=== PATIENT | male | born 1955 | race Caucasian/White ===

== ENCOUNTER → 2020-09-21 10:42 | Outpatient (BNVA) | payer MEDICARE, SELFPAY | PROVIDERS: Visit Provider Anesthesiology Pain Medicine | DX: M54.42 Lumbago with sciatica, left side (principal); M43.10 Spondylolisthesis, site unspecified; M51.36 Other intervertebral disc degeneration, lumbar region; M54.9 Dorsalgia, unspecified; M47.816 Spondylosis without myelopathy or radiculopathy, lumbar region; Z79.891 Long term (current) use of opiate analgesic | CPT/HCPCS: 99205 ==

== ENCOUNTER → 2020-10-19 10:49 | Outpatient (BNVA) | payer MEDICARE, SELFPAY | PROVIDERS: PCP Family Medicine; Visit Provider Anesthesiology Pain Medicine | DX: M54.42 Lumbago with sciatica, left side (principal); M51.36 Other intervertebral disc degeneration, lumbar region; M47.816 Spondylosis without myelopathy or radiculopathy, lumbar region; M19.019 Primary osteoarthritis, unspecified shoulder; M54.9 Dorsalgia, unspecified; Z79.891 Long term (current) use of opiate analgesic | CPT/HCPCS: 99214 ==

== ENCOUNTER 2020-10-26 10:49 | Outpatient (CLI) | payer MEDICARE, SELFPAY ==
--- NOTE | 2020-10-26 10:56 | XR_ITS ---
WS: [id number] LUMBAR SPINE: 5 VIEWS TECHNIQUE: AP, obliques, lateral and L5-S1 spot. HISTORY: M47.816 - Spondylosis without myelopathy or radiculopathy... COMPARISON: None available. L5 anterolisthesis by 9.6 mm. The remaining vertebral bodies are normally aligned. No fractures. L5 p ars defects are noted. Very minimal narrowing of the disc spaces. L5-S1 foramina are at least moderately narrowed. SI joints are symmetric bilaterally. No soft tissue abnormalities. Prior LEFT hip arthroplasty. XR/XR lumbar spine min 4V [id number] IMPRESSION: 1. Grade 1 spondylolisthesis with spondylolysis at L5. 2. Moderate narrowing of the L5-S1 foramina.
--- NOTE | 2020-10-26 10:56 | XR_ITS ---
WS: [id number] RIGHT SHOULDER: 3 VIEW(S) TECHNIQUE: Internal and external rotation with Y view. 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 No fracture or dislocation or soft tissue abnormality. Mild AC joint arthritis with narrowing. Mild irregularity along the glenoid surface. Visualized RIGHT lung is clear. XR/XR shoulder RT min 2V* [id number] IMPRESSION: Mild AC joint and glenohumeral joint arthritis.
== END 2020-10-26 10:50 | disposition home or self-care (01) ==
PROVIDERS: PCP Family Medicine; Visit Provider Anesthesiology Pain Medicine
DX: M47.816 Spondylosis without myelopathy or radiculopathy, lumbar region (principal); M13.811 Other specified arthritis, right shoulder; M43.16 Spondylolisthesis, lumbar region
CPT/HCPCS: 72110; 73030

== ENCOUNTER → 2020-10-28 09:12 | Outpatient (BNVA) | payer MEDICARE, SELFPAY | PROVIDERS: PCP Family Medicine; Visit Provider Family Medicine | DX: I10 Essential (primary) hypertension (principal); E11.9 Type 2 diabetes mellitus without complications; E03.8 Other specified hypothyroidism; Z12.5 Encounter for screening for malignant neoplasm of prostate; D35.2 Benign neoplasm of pituitary gland; Z96.642 Presence of left artificial hip joint; Z68.23 Body mass index [BMI] 23.0-23.9, adult | CPT/HCPCS: 80053; 80061; 82043; 83036; 84443; 85025; G0103 ==

== ENCOUNTER → 2020-11-16 09:49 | Outpatient (BNVA) | payer MEDICARE, SELFPAY | PROVIDERS: PCP Family Medicine; Visit Provider Anesthesiology Pain Medicine | DX: M54.42 Lumbago with sciatica, left side (principal); M51.36 Other intervertebral disc degeneration, lumbar region; M43.10 Spondylolisthesis, site unspecified; M47.816 Spondylosis without myelopathy or radiculopathy, lumbar region; M54.9 Dorsalgia, unspecified; M19.019 Primary osteoarthritis, unspecified shoulder; Z79.891 Long term (current) use of opiate analgesic; Z87.891 Personal history of nicotine dependence | CPT/HCPCS: 99214 ==

== ENCOUNTER → 2020-12-14 09:07 | Outpatient (BNVA) | payer MEDICARE, SELFPAY | PROVIDERS: PCP Family Medicine; Visit Provider Anesthesiology Pain Medicine | DX: M54.42 Lumbago with sciatica, left side (principal); M47.816 Spondylosis without myelopathy or radiculopathy, lumbar region; M51.36 Other intervertebral disc degeneration, lumbar region; M43.10 Spondylolisthesis, site unspecified; M19.011 Primary osteoarthritis, right shoulder; Z79.891 Long term (current) use of opiate analgesic | CPT/HCPCS: 99213; 99214 ==

== ENCOUNTER → 2021-01-10 10:46 | Outpatient (BNVA) | payer MEDICARE, SELFPAY | PROVIDERS: PCP Family Medicine; Visit Provider Anesthesiology Pain Medicine | DX: M51.36 Other intervertebral disc degeneration, lumbar region (principal); M47.816 Spondylosis without myelopathy or radiculopathy, lumbar region; M19.011 Primary osteoarthritis, right shoulder; M43.16 Spondylolisthesis, lumbar region; M48.07 Spinal stenosis, lumbosacral region; Z79.891 Long term (current) use of opiate analgesic | CPT/HCPCS: 99214 ==

== ENCOUNTER 2021-02-08 08:29 | Outpatient (CLI) | payer MEDICARE, SELFPAY ==
[2021-02-08 09:03] LABS: Basophils % 0.6 %; Eosinophils # 0.2 10^3/uL (0.0-0.8); Eosinophils % 3.6 %; Hematocrit 43.3 % (42.0-52.0); Hemoglobin 14.3 g/dL (11.7-16.6); Lymphocytes # 1.1 10^3/uL (0.8-4.8); Lymphocytes % 23.7 %; Mean Corpuscular Hemoglobin 29.1 pg (28.0-34.0); Monocytes # 0.3 10^3/uL (0.2-0.9); Monocytes % 6.6 %; Neutrophils # 3.08 10^3/uL (1.8-7.7); Neutrophils % 65.3 %; Nucleated Red Blood Cells % 0 %; Platelet Count 186 10^3/cmm (130-400); Red Blood Count 4.92 10^6/uL (4.1-5.3); Red Cell Distribution Width 12.7 % (12.1-15.1); White Blood Count 4.7 10^3/uL (4.0-10.0)
[2021-02-08 09:51] LABS: Free T4 Free Thyroxine 1.56 ng/dL (0.82-1.77); Prostate Specific Antigen 0.206 ng/mL (0-4)
[2021-02-08 10:02] LABS: Anion Gap 14.2 (5-19); Blood Urea Nitrogen 14 mg/dL (8-23); Calcium 8.8 mg/dL (8.5-10.5); Carbon Dioxide 28 mmol/L (22-29); Chloride 96 mmol/L (98-107); Glomerular Filtration Rate 113.9 mL/min (90-130); Glucose 167 mg/dL (65-115); Osmolality Calculated 282 mOsm/kg (285-295); Potassium 4.2 mmol/L (3.5-5.1); Sodium 134 mmol/L (136-145)
[2021-02-12 14:12] LABS: Plasma Renin Activity LC/MS/MS 2.55 ng/mL/h (0.25-5.82)
[2021-02-13 14:17] LABS: IGF1 LC/MS 73 ng/mL (41-279)
== END 2021-02-08 08:30 | disposition home or self-care (01) ==
LOC: LAB 08:39
PROVIDERS: PCP Family Medicine; Visit Provider Internal Medicine
DX: E11.9 Type 2 diabetes mellitus without complications (principal); E78.5 Hyperlipidemia, unspecified; E23.6 Other disorders of pituitary gland
CPT/HCPCS: 36415; 80048; 84153; 84244; 84305; 84439; 85025

== ENCOUNTER → 2021-04-05 09:48 | Outpatient (BNVA) | payer MEDICARE, SELFPAY | PROVIDERS: PCP Family Medicine; Visit Provider Internal Medicine | DX: E11.9 Type 2 diabetes mellitus without complications (principal); E23.6 Other disorders of pituitary gland; E03.8 Other specified hypothyroidism; E78.5 Hyperlipidemia, unspecified; I10 Essential (primary) hypertension; Z87.891 Personal history of nicotine dependence; Z79.84 Long term (current) use of oral hypoglycemic drugs | CPT/HCPCS: 99214 ==

== ENCOUNTER 2021-04-06 12:24 | Outpatient (CLI) | payer MEDICARE, SELFPAY ==
[2021-04-06 13:28] LABS: Anion Gap 14.9 (5-19); Blood Urea Nitrogen 16 mg/dL (8-23); Calcium 9.3 mg/dL (8.5-10.5); Carbon Dioxide 26 mmol/L (22-29); Chloride 99 mmol/L (98-107); Glomerular Filtration Rate 113.9 mL/min (90-130); Glucose 179 mg/dL (65-115); Osmolality Calculated 286 mOsm/kg (285-295); Potassium 4.9 mmol/L (3.5-5.1); Sodium 135 mmol/L (136-145)
[2021-04-06 13:36] LABS: Free T4 Free Thyroxine 1.61 ng/dL (0.82-1.77); Testosterone Total 290.9 ng/dL (193-740)
[2021-04-10 00:18] LABS: Plasma Renin Activity LC/MS/MS 3.59 ng/mL/h (0.25-5.82)
[2021-04-11 15:07] LABS: IGF1 LC/MS 71 ng/mL (41-279); Z Score (Male) -1.1 SD (-2.0 - +2.0)
== END 2021-04-06 12:25 | disposition home or self-care (01) ==
LOC: LAB 12:28
PROVIDERS: PCP Family Medicine; Visit Provider Internal Medicine
DX: E03.8 Other specified hypothyroidism (principal); E11.9 Type 2 diabetes mellitus without complications; E23.6 Other disorders of pituitary gland
CPT/HCPCS: 80048; 84244; 84305; 84403; 84439

== ENCOUNTER 2021-04-06 13:18 | Outpatient (CLI) | payer MEDICARE, SELFPAY ==
--- NOTE | 2021-04-06 13:40 | XR_ITS ---
WS: [id number] HAND RIGHT TECHNIQUE: 3 views of the right hand CLINICAL INFORMATION: right hand pain COMPARISON: None. FINDINGS: Joint prosthesis third MCP joint with surrounding bony remodeling in the third proximal phalanx. Oste openia. Degenerative narrowing involving the second fourth and fifth MCP joints with ulnar deviation. Ulnar deviation of the third MCP joint prosthesis. Mild IP joint narrowing involving the PIP and DIP joints. Moderate degenerative narrowing at the radiocarpal articulation. Sclerosis at the DRUJ. Mode rate degenerative changes at first CMC and STT. XR/XR hand RT min 3V* [id number] IMPRESSION: 1. Prior postoperative changes third MCP prosthesis with ulnar deviation. 2. Ulnar deviation at the second fourth and fifth MTP joints with joint space narrowing. 3. No visualized fourth or fifth metacarpal fractures.
== END 2021-04-06 13:19 | disposition home or self-care (01) ==
PROVIDERS: PCP Family Medicine; Visit Provider Family Medicine
DX: M79.641 Pain in right hand (principal)
CPT/HCPCS: 73130

== ENCOUNTER 2021-10-03 08:22 | Outpatient (CLI) | payer MEDICARE, SELFPAY ==
[2021-10-03 09:05] LABS: Anion Gap 16.2 (5-19); Blood Urea Nitrogen 16 mg/dL (8-23); Calcium 9.5 mg/dL (8.5-10.5); Carbon Dioxide 27 mmol/L (22-29); Chloride 99 mmol/L (98-107); Cholesterol 147 mg/dL (0-200); Glucose 108 mg/dL (65-115); HDL Cholesterol 49 mg/dL (60-100); LDL Cholesterol Calculated 75 mg/dL (50-129); LDL HDL Ratio 1.53 RATIO (0.00-3.22); Osmolality Calculated 288 mOsm/kg (285-295); Potassium 4.2 mmol/L (3.5-5.1); Sodium 138 mmol/L (136-145); Triglycerides 117 mg/dL (0-150)
[2021-10-03 09:12] LABS: Free T4 Free Thyroxine 1.62 ng/dL (0.82-1.77); Testosterone Total 116.8 ng/dL (193-740)
[2021-10-03 09:21] LABS: Estmated Average Glucose 174; Hemoglobin A1C 7.7 % (4.0-6.0)
== END 2021-10-03 08:23 | disposition home or self-care (01) ==
LOC: LAB 08:29
PROVIDERS: PCP Family Medicine; Visit Provider Internal Medicine
DX: D35.2 Benign neoplasm of pituitary gland (principal); E11.9 Type 2 diabetes mellitus without complications; E23.6 Other disorders of pituitary gland; E78.5 Hyperlipidemia, unspecified
CPT/HCPCS: 80048; 80061; 83036; 84403; 84439

== ENCOUNTER → 2021-10-05 10:19 | Outpatient (BNVA) | payer MEDICARE, SELFPAY | PROVIDERS: PCP Family Medicine; Visit Provider Internal Medicine | DX: E23.6 Other disorders of pituitary gland (principal); M81.0 Age-related osteoporosis without current pathological fracture; E23.0 Hypopituitarism; E03.8 Other specified hypothyroidism; E11.9 Type 2 diabetes mellitus without complications; E27.49 Other adrenocortical insufficiency; E78.5 Hyperlipidemia, unspecified; M06.00 Rheumatoid arthritis without rheumatoid factor, unspecified site; Z87.891 Personal history of nicotine dependence | CPT/HCPCS: 99214 ==

== ENCOUNTER → 2021-10-18 11:05 | Outpatient (BNVA) | payer MEDICARE, SELFPAY | PROVIDERS: PCP Family Medicine; Visit Provider Family Medicine | DX: I10 Essential (primary) hypertension (principal); Z79.891 Long term (current) use of opiate analgesic | CPT/HCPCS: 80307 ==

== ENCOUNTER → 2021-11-17 08:50 | Outpatient (BNVA) | payer MEDICARE, SELFPAY | PROVIDERS: PCP Family Medicine; Referring Provider Internal Medicine; Visit Provider Internal Medicine Rheumatology | DX: M06.00 Rheumatoid arthritis without rheumatoid factor, unspecified site (principal); Z79.899 Other long term (current) drug therapy; Z11.59 Encounter for screening for other viral diseases; Z11.1 Encounter for screening for respiratory tuberculosis; E23.6 Other disorders of pituitary gland; Z71.85 Encounter for immunization safety counseling | CPT/HCPCS: 36415; 71046; 73070; 73130; 73630; 80076; 82306; 85025; 85651; 86140; 86480; 86704; 86803; 87340; 99204 ==

== ENCOUNTER 2021-12-22 14:23 | Outpatient (CLI) | payer MEDICARE, SELFPAY ==
[2021-12-22 15:05] LABS: Basophils % 0.3 %; Eosinophils % 0.1 %; Hematocrit 38.6 % (42.0-52.0); Hemoglobin 13.5 g/dL (11.7-16.6); Lymphocytes # 0.5 10^3/uL (0.8-4.8); Lymphocytes % 7.8 %; Mean Corpuscular Hemoglobin 29.7 pg (28.0-34.0); Mean Corpuscular Volume 84.8 fl (80-94); Mean Platelet Volume 8.7 fL (7.4-10.4); Monocytes # 0.2 10^3/uL (0.2-0.9); Monocytes % 3.1 %; Neutrophils # 5.99 10^3/uL (1.8-7.7); Neutrophils % 88.1 %; Nucleated Red Blood Cells % 0 %; Platelet Count 232 10^3/cmm (130-400); Red Blood Count 4.55 10^6/uL (4.1-5.3); Red Cell Distribution Width 14.2 % (12.1-15.1); White Blood Count 6.8 10^3/uL (4.0-10.0)
[2021-12-22 15:29] LABS: Alanine Aminotransferase 25 U/L (0-41); Albumin Level 4.8 g/dL (3.5-5.2); Alkaline Phosphatase 42 IU/L (40-130); Aspartate Amino Transferase 18 U/L (0-40); Globulin 1.8 g/dL (1.3-4.6); Glomerular Filtration Rate 97.3 mL/min (90-130); Total Bilirubin 0.7 mg/dL (0.15-1.2); Total Protein 6.6 g/dL (6.6-8.7)
== END 2021-12-22 14:24 | disposition home or self-care (01) ==
PROVIDERS: PCP Family Medicine; Visit Provider Internal Medicine Rheumatology
DX: M06.00 Rheumatoid arthritis without rheumatoid factor, unspecified site (principal); Z79.899 Other long term (current) drug therapy
CPT/HCPCS: 36415; 80053; 80061; 80076; 82565; 83036; 84305; 84403; 84439; 85025; 86140

== ENCOUNTER 2021-12-28 08:56 | Outpatient (CLI) | payer MEDICARE, SELFPAY ==
[2021-12-28 10:04] LABS: Estmated Average Glucose 192; Hemoglobin A1C 8.3 % (4.0-6.0)
[2021-12-28 10:07] LABS: Anion Gap 16.3 (5-19); Blood Urea Nitrogen 12 mg/dL (8-23); Carbon Dioxide 27 mmol/L (22-29); Chloride 99 mmol/L (98-107); Free T4 Free Thyroxine 1.72 ng/dL (0.82-1.77); Glomerular Filtration Rate 97.3 mL/min (90-130); Glucose 141 mg/dL (65-115); Osmolality Calculated 288 mOsm/kg (285-295); Potassium 4.3 mmol/L (3.5-5.1); Sodium 138 mmol/L (136-145); Testosterone Total 209.4 ng/dL (193-740)
[2021-12-31 15:52] LABS: IGF1 LC/MS 97 ng/mL (41-279); Z Score (Male) -0.4 SD (-2.0 - +2.0)
== END 2021-12-28 08:57 | disposition home or self-care (01) ==
LOC: LAB 08:59
PROVIDERS: PCP Family Medicine; Visit Provider Internal Medicine
DX: E03.8 Other specified hypothyroidism (principal); E11.9 Type 2 diabetes mellitus without complications; M81.0 Age-related osteoporosis without current pathological fracture; E29.1 Testicular hypofunction
CPT/HCPCS: 36415; 80048; 83036; 84153; 84305; 84403; 84439

== ENCOUNTER → 2022-01-03 10:32 | Outpatient (BNVA) | payer MEDICARE, SELFPAY | PROVIDERS: PCP Family Medicine; Visit Provider Internal Medicine | DX: E11.9 Type 2 diabetes mellitus without complications (principal); M81.0 Age-related osteoporosis without current pathological fracture; E03.8 Other specified hypothyroidism; E27.49 Other adrenocortical insufficiency; E23.0 Hypopituitarism; D35.2 Benign neoplasm of pituitary gland; E23.6 Other disorders of pituitary gland; Z87.891 Personal history of nicotine dependence; Z79.84 Long term (current) use of oral hypoglycemic drugs | CPT/HCPCS: 99214; 99215 ==

== ENCOUNTER 2022-01-09 12:57 | Outpatient (CLI) | payer MEDICARE, SELFPAY ==
--- NOTE | 2022-01-09 13:00 | XR_ITS ---
WS: [id number] SCREENING DEXA SCAN [employer] CLINICAL INFORMATION: Checking bone density COMPARISON: None. FINDINGS: The L1-L4 bone mineral density measures 0.970 g/cm2. This corresponds to a T score score of -2.1 and Z score of -1.1. Right femoral neck bone mineral density measures 0.849. This corresponds to a T score -1.7 and Z scor e of -0.9. XR/XR DEXA axial skeleton* [id number] IMPRESSION: Osteopenia Patient's FRAX calculated 10 year probability for major osteoporotic fracture i s 17.2 % and osteoporotic hip fracture is 5.9%.
== END 2022-01-09 12:58 | disposition home or self-care (01) ==
LOC: RAD 12:58
PROVIDERS: PCP Family Medicine; Visit Provider Internal Medicine
DX: M81.0 Age-related osteoporosis without current pathological fracture (principal); E11.9 Type 2 diabetes mellitus without complications; E03.8 Other specified hypothyroidism; M85.80 Other specified disorders of bone density and structure, unspecified site; E23.0 Hypopituitarism; E78.5 Hyperlipidemia, unspecified
CPT/HCPCS: 77080

== ENCOUNTER 2022-01-18 15:02 | Outpatient (CLI) | payer MEDICARE, SELFPAY ==
--- NOTE | 2022-01-18 15:41 | MR_ITS ---
WS: [id number] MRI BRAIN WITHOUT AND WITH CONTRAST, ATTENTION DIRECTED TO THE PITUITARY GLAND HISTORY: D35.2 - Benign neoplasm of pituitary gland COMPARISON: None available. TECHNIQUE: Diffusion-weighted imaging, axial T2 sequence, and dynamic postcontrast images in 3 planes are performed. High-resolution coronal and sagittal imaging performed through the pituitary region w ith and without intravenous gadolinium. Sagittal and axial T1 fat sat sequences post-MultiHance 14 cc IV. No diffusion-weighted abnormalities. There is only very mild volume loss and mild small vessel ischem ic disease throughout the brain. No hemorrhage. Ventricles and extra-axial spaces are normal size. No prior infarct. No inferior displacement of cerebellar tonsils. Posterior fossa is negative. In the region of the sella turcica the pituitary gland is identified but very small caliber. The RIGH T pituitary is slightly greater in size than the LEFT. The posterior bright spot is normal. Infundibu lum is normal position without elevation. On the dynamic imaging through the pituitary gland no micro adenoma or macroadenoma is identified. There is very little pituitary gland remaining and greatest to the RIGHT of midline. There is no displacement of the pituitary or posterior bright spot. Normal enhancement of the brain. No masses. No vascular abnormality. Orbits and globes are negative. Normal enhancement throughout the minto of Black. Visualized paranasal sinuses and mastoid air cells are clear. Calvarium and scalp are negative. MR/MR pituitary wo/w con* [id number] IMPRESSION: 1. Markedly atrophic pituitary gland with no microadenoma or macroadenoma iden tified. Nearly empty sella turcica was slightly greater RIGHT pituitary remaini ng. No ectopic pituitary identified. 2. Very mild atrophy and small vessel ischemic disease within the brain.
[2022-01-18] MEDS: gadobenate dimeglumine 20 mL vial IV (16:33)
== END 2022-01-18 15:03 | disposition home or self-care (01) ==
PROVIDERS: PCP Family Medicine; Visit Provider Internal Medicine
DX: D35.2 Benign neoplasm of pituitary gland (principal); E23.6 Other disorders of pituitary gland
CPT/HCPCS: 70553

== ENCOUNTER → 2022-02-22 14:01 | Outpatient (BNVA) | payer MEDICARE, SELFPAY | PROVIDERS: PCP Family Medicine; Visit Provider Internal Medicine Rheumatology | DX: M06.00 Rheumatoid arthritis without rheumatoid factor, unspecified site (principal); Z79.899 Other long term (current) drug therapy; Z71.85 Encounter for immunization safety counseling; E23.6 Other disorders of pituitary gland; M81.0 Age-related osteoporosis without current pathological fracture | CPT/HCPCS: 99214 ==

== ENCOUNTER 2022-03-02 09:30 | Outpatient (CLI) | payer MEDICARE, SELFPAY ==
[2022-03-02 10:53] LABS: Estmated Average Glucose 154
[2022-03-02 11:01] LABS: Alanine Aminotransferase 23 U/L (0-41); Albumin Level 4.4 g/dL (3.5-5.2); Alkaline Phosphatase 39 U/L (40-130); Anion Gap 14.5 (5-19); Aspartate Amino Transferase 16 U/L (0-40); Blood Urea Nitrogen 14 mg/dL (8-23); Calcium 9.1 mg/dL (8.5-10.5); Carbon Dioxide 28 mmol/L (22-29); Chloride 98 mmol/L (98-107); Chol HDL Ratio 2.74 mg/dL (1.0-5.00); Cholesterol 126 mg/dL (0-200); Globulin 1.8 g/dL (1.3-4.6); Glomerular Filtration Rate 113.5 mL/min (90-130); Glucose 133 mg/dL (65-115); HDL Cholesterol 46 mg/dL (60-100); LDL Cholesterol Calculated 62 mg/dL (50-129); LDL HDL Ratio 1.35 RATIO (0.00-3.22); Osmolality Calculated 284 mOsm/kg (285-295); Potassium 4.5 mmol/L (3.5-5.1); Sodium 136 mmol/L (136-145); Total Bilirubin 0.6 mg/dL (0.15-1.2); Total Protein 6.2 g/dL (6.6-8.7); Triglycerides 92 mg/dL (0-150)
[2022-03-02 11:02] LABS: Free T4 Free Thyroxine 1.55 ng/dL (0.82-1.77); Testosterone Total 186.8 ng/dL (193-740)
[2022-03-20 17:51] LABS: IGF1 LC/MS 146; Z Score (Male) 0.4
== END 2022-03-02 09:31 | disposition home or self-care (01) ==
LOC: LAB 09:33
PROVIDERS: PCP Family Medicine; Visit Provider Internal Medicine
DX: Z79.899 Other long term (current) drug therapy (principal); E27.49 Other adrenocortical insufficiency
CPT/HCPCS: 36415; 80053; 80061; 83036; 84305; 84403; 84439

== ENCOUNTER → 2022-03-09 10:58 | Outpatient (BNVA) | payer MEDICARE, SELFPAY | PROVIDERS: PCP Family Medicine; Visit Provider Internal Medicine | DX: E11.9 Type 2 diabetes mellitus without complications (principal); E03.8 Other specified hypothyroidism; E23.6 Other disorders of pituitary gland; E27.49 Other adrenocortical insufficiency; E23.0 Hypopituitarism; M81.0 Age-related osteoporosis without current pathological fracture; Z79.899 Other long term (current) drug therapy; Z79.84 Long term (current) use of oral hypoglycemic drugs | CPT/HCPCS: 99214 ==

== ENCOUNTER → 2022-05-08 13:32 | Outpatient (BNVA) | payer MEDICARE, SELFPAY | PROVIDERS: PCP Family Medicine; Visit Provider Internal Medicine Rheumatology | DX: M06.00 Rheumatoid arthritis without rheumatoid factor, unspecified site (principal); Z79.899 Other long term (current) drug therapy; Z71.85 Encounter for immunization safety counseling; E23.6 Other disorders of pituitary gland; M81.0 Age-related osteoporosis without current pathological fracture; Z79.890 Hormone replacement therapy | CPT/HCPCS: 99214 ==

== ENCOUNTER 2022-05-10 09:47 | Outpatient (CLI) | payer MEDICARE, SELFPAY ==
[2022-05-10 10:27] LABS: Basophils # 0.1 10^3/uL (0.0-0.1); Basophils % 0.8 %; Eosinophils # 0.2 10^3/uL (0.0-0.8); Eosinophils % 2.5 %; Hematocrit 41.3 % (42.0-52.0); Hemoglobin 14.1 g/dL (11.7-16.6); Lymphocytes # 0.7 10^3/uL (0.8-4.8); Lymphocytes % 11.2 %; Mean Corpuscular HGB Conc 34.1 g/dL (30.0-36.0); Mean Corpuscular Hemoglobin 30.3 pg (28.0-34.0); Mean Corpuscular Volume 88.8 fl (80-94); Mean Platelet Volume 8.7 fL (7.4-10.4); Monocytes # 0.4 10^3/uL (0.2-0.9); Monocytes % 7.1 %; Neutrophils # 4.72 10^3/uL (1.8-7.7); Neutrophils % 77.9 %; Nucleated Red Blood Cells % 0 %; Platelet Count 197 10^3/cmm (130-400); Red Blood Count 4.65 10^6/uL (4.1-5.3); Red Cell Distribution Width 13.2 % (12.1-15.1); White Blood Count 6.1 10^3/uL (4.0-10.0)
[2022-05-10 10:46] LABS: Alanine Aminotransferase 20 U/L (0-41); Albumin Level 4.5 g/dL (3.5-5.2); Alkaline Phosphatase 57 U/L (40-130); Aspartate Amino Transferase 17 U/L (0-40); Blood Urea Nitrogen 15 mg/dL (8-23); C Reactive Protein 4.4 mg/L (0.0-4.9); Calcium 7.9 mg/dL (8.5-10.5); Carbon Dioxide 27 mmol/L (22-29); Chloride 92 mmol/L (98-107); Globulin 2.5 g/dL (1.3-4.6); Glucose 201 mg/dL (65-115); Osmolality Calculated 279 mOsm/kg (285-295); Sodium 131 mmol/L (136-145); Total Bilirubin 0.8 mg/dL (0.15-1.2)
[2022-05-10 10:50] LABS: Anion Gap 16.6 (5-19); Potassium 4.6 mmol/L (3.5-5.1)
[2022-05-10 10:53] LABS: Free T4 Free Thyroxine 1.52 ng/dL (0.82-1.77); Testosterone Total 123.6 ng/dL (193-740)
[2022-05-10 10:56] LABS: Estmated Average Glucose 206; Hemoglobin A1C 8.8 % (4.0-6.0)
[2022-05-15 12:39] LABS: IGF1 LC/MS 205 ng/mL (41-279); Z Score (Male) 1.2 SD (-2.0 - +2.0)
== END 2022-05-10 09:48 | disposition home or self-care (01) ==
LOC: LAB 09:53
PROVIDERS: PCP Family Medicine; Referring Provider Internal Medicine; Visit Provider Internal Medicine Rheumatology
DX: M06.00 Rheumatoid arthritis without rheumatoid factor, unspecified site (principal); Z79.899 Other long term (current) drug therapy; E11.9 Type 2 diabetes mellitus without complications; E23.6 Other disorders of pituitary gland; E27.49 Other adrenocortical insufficiency; E03.8 Other specified hypothyroidism
CPT/HCPCS: 36415; 80048; 80076; 83036; 84305; 84403; 84439; 85025; 86140

== ENCOUNTER 2022-05-24 10:15 | Outpatient (CLI) | payer MEDICARE, SELFPAY ==
[2022-05-24 11:05] LABS: Basophils # 0.1 10^3/uL (0.0-0.1); Basophils % 0.8 %; Eosinophils # 0.1 10^3/uL (0.0-0.8); Eosinophils % 1.9 %; Hematocrit 40.4 % (42.0-52.0); Hemoglobin 13.7 g/dL (11.7-16.6); Mean Corpuscular HGB Conc 33.9 g/dL (30.0-36.0); Mean Corpuscular Hemoglobin 30.2 pg (28.0-34.0); Mean Platelet Volume 8.6 fL (7.4-10.4); Monocytes # 0.5 10^3/uL (0.2-0.9); Monocytes % 6.4 %; Neutrophils % 76.5 %; Nucleated Red Blood Cells % 0 %; Platelet Count 291 10^3/cmm (130-400); Red Blood Count 4.54 10^6/uL (4.1-5.3); Red Cell Distribution Width 13.4 % (12.1-15.1); White Blood Count 7.5 10^3/uL (4.0-10.0)
[2022-05-24 11:28] LABS: Alanine Aminotransferase 23 U/L (0-41); Albumin Level 4.2 g/dL (3.5-5.2); Alkaline Phosphatase 53 U/L (40-130); Aspartate Amino Transferase 20 U/L (0-40); C Reactive Protein 6.3 mg/L (0.0-4.9); Globulin 2.5 g/dL (1.3-4.6); Total Bilirubin 0.7 mg/dL (0.15-1.2); Total Protein 6.7 g/dL (6.6-8.7)
[2022-05-25 12:59] LABS: Cyclic Citrullinated Peptide <16 UNITS
== END 2022-05-24 10:16 | disposition home or self-care (01) ==
PROVIDERS: Internal Medicine Rheumatology; PCP Family Medicine; Visit Provider Internal Medicine
DX: M06.00 Rheumatoid arthritis without rheumatoid factor, unspecified site (principal); Z79.899 Other long term (current) drug therapy
CPT/HCPCS: 36415; 80076; 82565; 85025; 86140; 86200; 86431

== ENCOUNTER → 2022-05-31 10:42 | Outpatient (BNVA) | payer MEDICARE, SELFPAY | PROVIDERS: PCP Family Medicine; Visit Provider Internal Medicine | DX: E11.9 Type 2 diabetes mellitus without complications (principal); E27.49 Other adrenocortical insufficiency; E23.6 Other disorders of pituitary gland; E03.8 Other specified hypothyroidism; E23.0 Hypopituitarism; M81.0 Age-related osteoporosis without current pathological fracture; Z79.899 Other long term (current) drug therapy; Z79.84 Long term (current) use of oral hypoglycemic drugs; Z79.890 Hormone replacement therapy | CPT/HCPCS: 99214 ==

== ENCOUNTER → 2022-08-08 10:36 | Outpatient (BNVA) | payer MEDICARE, SELFPAY | PROVIDERS: PCP Family Medicine; Visit Provider Internal Medicine Rheumatology | DX: M06.00 Rheumatoid arthritis without rheumatoid factor, unspecified site (principal); Z79.899 Other long term (current) drug therapy; Z71.85 Encounter for immunization safety counseling; E23.6 Other disorders of pituitary gland | CPT/HCPCS: 99214 ==

== ENCOUNTER 2022-08-25 09:20 | Outpatient (CLI) | payer MEDICARE, SELFPAY ==
[2022-08-25 10:03] LABS: Basophils % 0.4 %; Eosinophils # 0.1 10^3/uL (0.0-0.8); Eosinophils % 1.1 %; Hematocrit 42.6 % (42.0-52.0); Hemoglobin 14.4 g/dL (11.7-16.6); Lymphocytes # 1.2 10^3/uL (0.8-4.8); Lymphocytes % 14.6 %; Mean Corpuscular HGB Conc 33.8 g/dL (30.0-36.0); Mean Corpuscular Hemoglobin 30.4 pg (28.0-34.0); Mean Corpuscular Volume 89.9 fl (80-94); Mean Platelet Volume 8.6 fL (7.4-10.4); Monocytes # 0.7 10^3/uL (0.2-0.9); Neutrophils # 6.41 10^3/uL (1.8-7.7); Neutrophils % 75.5 %; Nucleated Red Blood Cells % 0 %; Platelet Count 232 10^3/cmm (130-400); Red Blood Count 4.74 10^6/uL (4.1-5.3); Red Cell Distribution Width 14.4 % (12.1-15.1); White Blood Count 8.5 10^3/uL (4.0-10.0)
[2022-08-25 10:10] LABS: Estmated Average Glucose 151; Hemoglobin A1C 6.9 % (4.0-6.0)
[2022-08-25 10:19] LABS: Alanine Aminotransferase 30 U/L (0-41); Albumin Level 4.4 g/dL (3.5-5.2); Alkaline Phosphatase 31 U/L (40-130); Anion Gap 18.3 (5-19); Aspartate Amino Transferase 31 U/L (0-40); Blood Urea Nitrogen 20 mg/dL (8-23); Calcium 8.6 mg/dL (8.5-10.5); Carbon Dioxide 25 mmol/L (22-29); Chloride 101 mmol/L (98-107); Globulin 1.8 g/dL (1.3-4.6); Glomerular Filtration Rate 113.2 mL/min (90-130); Glucose 105 mg/dL (65-115); Osmolality Calculated 293 mOsm/kg (285-295); Potassium 4.3 mmol/L (3.5-5.1); Sodium 140 mmol/L (136-145); Total Protein 6.2 g/dL (6.6-8.7)
[2022-08-25 10:20] LABS: Alanine Aminotransferase 31 U/L (0-41); Albumin Level 4.2 g/dL (3.5-5.2); Alkaline Phosphatase 32 U/L (40-130); Aspartate Amino Transferase 27 U/L (0-40); Chol HDL Ratio 2.38 mg/dL (1.0-5.00); Cholesterol 131 mg/dL (0-200); HDL Cholesterol 55 mg/dL (60-100); LDL Cholesterol Calculated 60 mg/dL (50-129); LDL HDL Ratio 1.09 RATIO (0.00-3.22); Total Protein 6.2 g/dL (6.6-8.7); Triglycerides 82 mg/dL (0-150)
[2022-08-25 10:27] LABS: Free T4 Free Thyroxine 1.58 ng/dL (0.82-1.77); Testosterone Total 219.4 ng/dL (193-740)
[2022-08-25 10:29] LABS: Calcium 8.8 mg/dL (8.5-10.5); Parathyroid Hormone 28.4 pg/mL (15-65)
[2022-08-28 19:14] LABS: Testosterone, Free 40.1 pg/mL (46.0-224.0)
[2022-08-30 15:44] LABS: IGF1 LC/MS 102 ng/mL (41-279); Z Score (Male) -0.3 SD (-2.0 - +2.0)
== END 2022-08-25 09:21 | disposition home or self-care (01) ==
PROVIDERS: Internal Medicine Rheumatology; PCP Family Medicine; Visit Provider Internal Medicine
DX: M06.00 Rheumatoid arthritis without rheumatoid factor, unspecified site (principal); Z79.899 Other long term (current) drug therapy; E11.9 Type 2 diabetes mellitus without complications; E23.6 Other disorders of pituitary gland; E27.49 Other adrenocortical insufficiency; E03.8 Other specified hypothyroidism
CPT/HCPCS: 36415; 80053; 80061; 80076; 82310; 82565; 83036; 83970; 84305; 84402; 84403; 84439; 85025; 86140

== ENCOUNTER → 2022-09-04 10:39 | Outpatient (BNVA) | payer MEDICARE, SELFPAY | PROVIDERS: PCP Family Medicine; Visit Provider Internal Medicine | DX: E11.9 Type 2 diabetes mellitus without complications (principal); E23.0 Hypopituitarism; E23.6 Other disorders of pituitary gland; E27.49 Other adrenocortical insufficiency; E03.8 Other specified hypothyroidism; M81.0 Age-related osteoporosis without current pathological fracture; E78.5 Hyperlipidemia, unspecified; D35.2 Benign neoplasm of pituitary gland; Z79.4 Long term (current) use of insulin; Z79.84 Long term (current) use of oral hypoglycemic drugs; Z79.890 Hormone replacement therapy | CPT/HCPCS: 99214 ==

== ENCOUNTER → 2022-09-26 10:40 | Outpatient (BNVA) | payer MEDICARE, SELFPAY | PROVIDERS: PCP Family Medicine; Visit Provider Family Medicine | DX: M43.10 Spondylolisthesis, site unspecified (principal); M51.36 Other intervertebral disc degeneration, lumbar region; Z79.899 Other long term (current) drug therapy | CPT/HCPCS: 80307 ==

== ENCOUNTER 2022-10-30 10:00 | Outpatient (CLI) | payer MEDICARE, SELFPAY | END 2022-10-30 10:01 | disposition home or self-care (01) | LOC: SLEEP 10-31 10:38 | PROVIDERS: PCP Family Medicine; Visit Provider Family Medicine | DX: G47.33 Obstructive sleep apnea (adult) (pediatric) (principal) | CPT/HCPCS: G0399 ==

== ENCOUNTER 2022-10-31 09:43 | Outpatient (CLI) | payer MEDICARE, SELFPAY ==
[2022-10-31 10:31] LABS: Basophils % 0.4 %; Eosinophils # 0.1 10^3/uL (0.0-0.8); Eosinophils % 0.9 %; Hemoglobin 14.3 g/dL (11.7-16.6); Lymphocytes # 1.1 10^3/uL (0.8-4.8); Lymphocytes % 15.1 %; Mean Corpuscular HGB Conc 32.5 g/dL (30.0-36.0); Mean Corpuscular Hemoglobin 29.4 pg (28.0-34.0); Mean Corpuscular Volume 90.3 fl (80-94); Mean Platelet Volume 8.5 fL (7.4-10.4); Monocytes # 0.5 10^3/uL (0.2-0.9); Monocytes % 6.7 %; Neutrophils # 5.35 10^3/uL (1.8-7.7); Neutrophils % 76.5 %; Nucleated Red Blood Cells % 0 %; Platelet Count 208 10^3/cmm (130-400); Red Blood Count 4.87 10^6/uL (4.1-5.3); Red Cell Distribution Width 14.7 % (12.1-15.1)
[2022-10-31 10:53] LABS: Free T4 Free Thyroxine 1.56 ng/dL (0.82-1.77); Prostate Specific Antigen 0.396 ng/mL (0-4)
[2022-10-31 11:14] LABS: Calcium 8.6 mg/dL (8.5-10.5)
[2022-10-31 11:20] LABS: Parathyroid Hormone 33.6 pg/mL (15-65)
[2022-11-01 23:21] LABS: T3 Total 104 ng/dL (76-181)
[2022-11-06 11:05] LABS: IGF1 LC/MS 233 ng/mL (41-279); Z Score (Male) 1.5 SD (-2.0 - +2.0)
== END 2022-10-31 09:44 | disposition home or self-care (01) ==
PROVIDERS: PCP Family Medicine; Visit Provider Internal Medicine
DX: E23.0 Hypopituitarism (principal); E11.9 Type 2 diabetes mellitus without complications; Z12.5 Encounter for screening for malignant neoplasm of prostate; E23.6 Other disorders of pituitary gland; E27.49 Other adrenocortical insufficiency; E03.8 Other specified hypothyroidism; M81.0 Age-related osteoporosis without current pathological fracture; E78.5 Hyperlipidemia, unspecified; D35.2 Benign neoplasm of pituitary gland
CPT/HCPCS: 36415; 82310; 83970; 84153; 84305; 84403; 84439; 84443; 84480; 85025

== ENCOUNTER → 2022-11-06 10:30 | Outpatient (BNVA) | payer MEDICARE, SELFPAY | PROVIDERS: PCP Family Medicine; Visit Provider Internal Medicine | DX: E11.9 Type 2 diabetes mellitus without complications (principal); E03.8 Other specified hypothyroidism; E23.0 Hypopituitarism; D35.2 Benign neoplasm of pituitary gland; E78.5 Hyperlipidemia, unspecified; M81.0 Age-related osteoporosis without current pathological fracture; E27.49 Other adrenocortical insufficiency; E23.6 Other disorders of pituitary gland; Z79.899 Other long term (current) drug therapy; Z79.890 Hormone replacement therapy; Z79.4 Long term (current) use of insulin; Z79.84 Long term (current) use of oral hypoglycemic drugs | CPT/HCPCS: 99214 ==

== ENCOUNTER → 2022-11-07 09:25 | Outpatient (BNVA) | payer MEDICARE, SELFPAY | PROVIDERS: PCP Family Medicine; Visit Provider Internal Medicine Rheumatology | DX: M06.00 Rheumatoid arthritis without rheumatoid factor, unspecified site (principal); Z71.85 Encounter for immunization safety counseling; Z79.899 Other long term (current) drug therapy; E23.6 Other disorders of pituitary gland | CPT/HCPCS: 99214 ==

== ENCOUNTER 2022-11-10 09:27 | Outpatient (CLI) | payer MEDICARE, SELFPAY ==
[2022-11-11 09:45] LABS: Sex Hormone Binding Globulin 17 nmol/L (22-77)
[2022-11-15 22:11] LABS: Testosterone, Free 265.6 pg/mL (46.0-224.0)
== END 2022-11-10 09:28 | disposition home or self-care (01) ==
LOC: LAB 09:32
PROVIDERS: PCP Family Medicine; Visit Provider Internal Medicine
DX: D35.2 Benign neoplasm of pituitary gland (principal); E03.8 Other specified hypothyroidism; E23.0 Hypopituitarism; E78.5 Hyperlipidemia, unspecified; M81.0 Age-related osteoporosis without current pathological fracture
CPT/HCPCS: 84270; 84402; 84403

== ENCOUNTER 2023-01-29 08:45 | Outpatient (CLI) | payer MEDICARE, SELFPAY ==
[2023-01-29 09:24] LABS: Basophils % 0.6 %; Eosinophils # 0.1 10^3/uL (0.0-0.8); Eosinophils % 1.7 %; Hematocrit 47.5 % (37-53); Lymphocytes % 15.9 %; Mean Corpuscular HGB Conc 33.1 g/dL (30-55); Mean Corpuscular Hemoglobin 29.7 pg (27-33); Mean Corpuscular Volume 89.8 fl (82-101); Mean Platelet Volume 8.4 fL (7.4-10.4); Monocytes # 0.4 10^3/uL (0.2-0.9); Monocytes % 5.8 %; Neutrophils % 75.7 %; Nucleated Red Blood Cells % 0 %; Platelet Count 233 10^3/cmm (157-399); Red Blood Count 5.29 10^6/uL (3.85-5.65); Red Cell Distribution Width 14.6 % (12.1-15.1); White Blood Count 6.35 10^3/uL (3.29-11.43)
[2023-01-29 09:38] LABS: Estmated Average Glucose 148; Hemoglobin A1C 6.8 % (4.0-6.0)
[2023-01-29 10:15] LABS: Creatinine Urine, Random 21 mg/dL (39-259); Microalbum Creatinine Ratio Ur 48 mg/dL (0-20); Microalbumin Random Urine 1 ug/dL (0-20)
[2023-01-29 10:22] LABS: Alanine Aminotransferase 39 U/L (0-41); Albumin Level 4.6 g/dL (3.5-5.2); Alkaline Phosphatase 35 U/L (40-130); Anion Gap 13.1 (5-19); Aspartate Amino Transferase 27 U/L (0-40); Blood Urea Nitrogen 14 mg/dL (8-23); Calcium 8.7 mg/dL (8.5-10.5); Carbon Dioxide 30 mmol/L (22-29); Chloride 99 mmol/L (98-107); Chol HDL Ratio 3.22 mg/dL (1.0-5.00); Cholesterol 132 mg/dL (0-200); Free T4 Free Thyroxine 1.32 ng/dL (0.82-1.77); Glucose 113 mg/dL (65-115); HDL Cholesterol 41 mg/dL (60-100); LDL Cholesterol Calculated 65 mg/dL (50-129); LDL HDL Ratio 1.59 RATIO (0.00-3.22); Osmolality Calculated 287 mOsm/kg (285-295); Potassium 4.1 mmol/L (3.5-5.1); Sodium 138 mmol/L (136-145); Thyroid Stimulating Hormone 0.77 uIU/mL (0.27-4.20); Total Bilirubin 1.3 mg/dL (0.15-1.2); Total Protein 6.6 g/dL (6.6-8.7); Triglycerides 130 mg/dL (0-150)
[2023-01-29 11:19] LABS: Testosterone Total > 1500.0 ng/dL (193-740)
[2023-02-04 12:00] LABS: IGF1 LC/MS 81 ng/mL (41-279); Z Score (Male) -0.8 SD (-2.0 - +2.0)
== END 2023-01-29 08:46 | disposition home or self-care (01) ==
PROVIDERS: PCP Family Medicine; Visit Provider Internal Medicine
DX: E11.9 Type 2 diabetes mellitus without complications (principal); E03.8 Other specified hypothyroidism
CPT/HCPCS: 36415; 80053; 80061; 82044; 83036; 84305; 84403; 84439; 84443; 85025

== ENCOUNTER → 2023-02-07 10:40 | Outpatient (BNVA) | payer MEDICARE, SELFPAY | PROVIDERS: PCP Family Medicine; Visit Provider Internal Medicine | DX: E11.9 Type 2 diabetes mellitus without complications (principal); E27.49 Other adrenocortical insufficiency; E03.8 Other specified hypothyroidism; E23.6 Other disorders of pituitary gland; E23.0 Hypopituitarism; M81.0 Age-related osteoporosis without current pathological fracture; E78.5 Hyperlipidemia, unspecified; D35.2 Benign neoplasm of pituitary gland; Z79.4 Long term (current) use of insulin; Z79.84 Long term (current) use of oral hypoglycemic drugs; Z79.890 Hormone replacement therapy | CPT/HCPCS: 99214 ==

== ENCOUNTER → 2023-02-13 10:37 | Outpatient (BNVA) | payer MEDICARE, SELFPAY | PROVIDERS: PCP Family Medicine; Visit Provider Internal Medicine Rheumatology | DX: M06.00 Rheumatoid arthritis without rheumatoid factor, unspecified site (principal); Z79.899 Other long term (current) drug therapy; Z71.85 Encounter for immunization safety counseling; E23.6 Other disorders of pituitary gland | CPT/HCPCS: 99214 ==

== ENCOUNTER → 2023-02-19 09:41 | Outpatient (BNVA) | payer MEDICARE, SELFPAY | PROVIDERS: PCP Family Medicine; Visit Provider Nurse Practitioner Family | DX: M79.605 Pain in left leg (principal); M79.89 Other specified soft tissue disorders | CPT/HCPCS: 73590 ==

== ENCOUNTER 2023-02-22 10:39 | Outpatient (CLI) | payer MEDICARE, SELFPAY ==
[2023-02-28 15:10] LABS: IGF1 LC/MS 193 ng/mL (41-279); Z Score (Male) 1.1 SD (-2.0 - +2.0)
== END 2023-02-22 10:40 | disposition home or self-care (01) ==
PROVIDERS: PCP Family Medicine; Visit Provider Internal Medicine
DX: E11.9 Type 2 diabetes mellitus without complications (principal); E27.49 Other adrenocortical insufficiency; E03.8 Other specified hypothyroidism; E23.6 Other disorders of pituitary gland; E23.0 Hypopituitarism; M81.0 Age-related osteoporosis without current pathological fracture; E78.5 Hyperlipidemia, unspecified; D35.2 Benign neoplasm of pituitary gland
CPT/HCPCS: 36415; 84305

== ENCOUNTER 2023-02-23 09:57 | Emergency (ER) | payer MEDICARE, SELFPAY ==
[2023-02-23 10:52] VITALS: BP 166/88; PULSE 86; RESP 18; TEMP 36.6; O2SAT 99; BMI 24.1
--- NOTE | 2023-02-23 11:02 | W.ED.EXTPRO ---
HPI - Extremity Problem General: Chief complaint: Extremity Problem,Nontraumatic Stated complaint: left lower leg pain Time Seen by Provider: 02/23/23 11:01 Source: patient Mode of arrival: ambulatory History of Present Illness: 67-year-old male presents emergency room 2 weeks ago he is leg was hit by a tree as he was cutting it down he was seen and had plain x-rays done he was placed on crutches. He is continue to have ecchymosis is having some tracking ecchymosis down into his foot no recurrent injury he is on Enbrel he is worried about infection has not had any fever at home. His calf medially has been very tender. No chest pain no shortness of breath he is not on any anticoagulants. MD Complaint: extremity pain Onset (ago): week(s) Pain Consistency: constant Location: left and lower extremity Quality: aching Relieving factors: elevation and rest Exacerbating factors: weight bearing and palpation Associated symptoms: Deny chest pain, fever(s), rash or short of breath Review of Systems Const: Denies: fever(s), chills, fatigue or malaise Card: Denies: chest pain, palpitations or irregular heart rhythm Resp: Denies: dyspnea, productive cough or non-productive cough GI: Denies: abdominal pain, nausea, vomiting, hematemesis, coffee ground emesis, diarrhea, constipation, bloating, hematochezia or melena : Denies: flank pain, dysuria, urinary frequency or urinary urgency Musc: Reports: extremity pain and extremity swelling Skin/Breast: Denies: rash or pruritus PFSH ED PFSH: Medical History Benign tumor of pituitary gland Erectile dysfunction Essential hypertension High risk medication use Hyperlipidemia Immunization counseling Secondary hypothyroidism Type 2 diabetes mellitus, without long-term current use of insulin Surgical History H/O elbow surgery Bilateral ulnar release History of carpal tunnel surgery Bilateral History of left hip replacement Family History Father Heart attack Mother Breast cancer Social History Smoking and tobacco status: never smoked Second hand smoke exposure: No Alcohol intake: never Substance/Drug Use: never Physical Exam Const: GENERAL APPEARANCE: cooperative and comfortable ORIENTATION/CONSCIOUSNESS: Yes awake, Yes oriented to person, Yes oriented to place and Yes oriented to time HENMT: COMMON NORMALS: normocephalic, atraumatic and hearing grossly normal bilaterally HEAD & SCALP: normocephalic and atraumatic Resp: COMMON NORMALS: normal respiratory effort, No retractions, No use of accessory muscles and clear to auscultation bilaterally AUSCULTATION: clear to auscultation bilaterally Cardio: COMMON NORMALS: regular rate, regular rhythm and No murmurs present (Cardio) RATE: regular rate RHYTHM: regular rhythm Extremity: OTHER: Swelling of the mid to distal anterior tibia medially. There is ecchymosis over the area and is tracking inferiorly. No open or gaping wound no sign of cellulitis no active drainage superficial abrasion. Neuro: SENSORIUM/ORIENTATION: Yes oriented to person, Yes oriented to place and Yes oriented to time Skin: COMMON NORMALS: no rashes or lesions noted GENERAL SKIN EXAM: no rashes or lesions noted Course Vital Signs: Vital signs: Vital Signs Temperature 97.8 F 02/23/23 10:52 Pulse Rate 82 02/23/23 12:51 Respiratory Rate 16 02/23/23 12:51 Blood Pressure 167/100 02/23/23 12:51 Pulse Oximetry 98 02/23/23 12:51 Oxygen Delivery Me thod Room Air 02/23/23 11:24 MDM - Extremity (Nontraumatic) Medical Decision Making Passive range of motion with minimal discomfort complex hematoma on ultrasound no signs of infection. Ice elevate as needed. Given recent trauma and presentation on clinical exam believe this is a hematoma. Medical Records I reviewed the patient's medical records. Lab Data I reviewed the patient's lab results. 02/23/23 11:02 02/23/23 11:02 Laboratory Results WBC 10.25 10^3/uL (3.29-11.43) 02/23/23 11:02 RBC 5.01 10^6/uL (3.85-5.65) 02/23/23 11:02 Hgb 15.10 g/dL (11.27-16.99) 02/23/23 11:02 Hct 45.2 % (37-53) 02/23/23 11:02 MCV 90.2 fl (82-101) 02/23/23 11:02 MCH 30.1 pg (27-33) 02/23/23 11:02 MCHC 33.4 g/dL (30-55) 02/23/23 11:02 RDW 15.3 % (12.1-15.1) H 02/23/23 11:02 Plt Count 243 10^3/cmm (157-399) 02/23/23 11:02 MPV 8.4 fL (7.4-10.4) 02/23/23 11:02 Neut % (Auto) 87.5 % 02/23/23 11:02 Lymph % (Auto) 5.4 % 02/23/23 11:02 [place] % (Auto) 5.8 % 02/23/23 11:02 Eos % (Auto) 0.4 % 02/23/23 11:02 Baso % (Auto) 0.2 % 02/23/23 11:02 Neut # (Auto) 8.98 10^3/uL (1.8-7.7) H 02/23/23 11:02 Lymph # (Auto) 0.6 10^3/uL (0.8-4.8) L 02/23/23 11:02 [place] # (Auto) 0.6 10^3/uL (0.2-0.9) 02/23/23 11:02 Eos # (Auto) 0.0 10^3/uL (0.0-0.8) 02/23/23 11:02 Baso # (Auto) 0.0 10^3/uL (0.0-0.1) 02/23/23 11:02 Nucleated RBC % (auto) 0 % 02/23/23 11:02 Nucleated RBCs # 0.0 /100WBC 02/23/23 11:02 Sodium 137 mmol/L (136-145) 02/23/23 11:02 Potassium 4.7 mmol/L (3.5-5.1) 02/23/23 11:02 Chloride 97 mmol/L (98-107) L 02/23/23 11:02 Carbon Dioxide 30 mmol/L (22-29) H 02/23/23 11:02 Anion Gap 14.7 (5-19) 02/23/23 11:02 BUN 15 mg/dL (8-23) 02/23/23 11:02 Creatinine 0.8 mg/dL (0.7-1.2) 02/23/23 11:02 GFR Calculation 97.0 mL/min (90-130) 02/23/23 11:02 Glucose 196 mg/dL (65-115) H 02/23/23 11:02 POC Glucose 188 mg/dL (70-110) H 02/23/23 11:01 Calculated Osmolality 290 mOsm/kg (285-295) 02/23/23 11:02 Calcium 9.7 mg/dL (8.5-10.5) 02/23/23 11:02 Total Bilirubin 1.0 mg/dL (0.15-1.2) 02/23/23 11:02 AST 19 U/L (0-40) 02/23/23 11:02 ALT 30 U/L (0-41) 02/23/23 11:02 Alkaline Phosphatase 46 U/L (40-130) 02/23/23 11:02 Total Protein 7.0 g/dL (6.6-8.7) 02/23/23 11:02 Albumin 4.8 g/dL (3.5-5.2) 02/23/23 11:02 Globulin 2.2 g/dL (1.3-4.6) 02/23/23 11:02 All radiology interpretation(s) finalized by discharge Discharge Plan Discharge Patient Disposition: Home Clinical Impression: Hematoma Condition: Stable Prescriptions: No Action ondansetron 8 mg tablet,disintegrating 8 mg PO Q8H PRN (Reason: nausea and vomiting) 7 Days Qty: 21 0RF (DME) pen needle, diabetic [Comfort EZ Pen [place]] 32 gauge x 1/4 needle See Rx Instructions .Route Qty: 300 3RF Rx Instructions: once daily insulin glargine [Lantus Solostar U-100 Insulin] 100 unit/mL (3 mL) insulin pen 30 unit SUBCUT DAILY Qty: 27 3RF hydrocortisone 10 mg tablet See Rx Instructions .ROUTE .COMPLEX Qty: 180 3RF Dose Instruction: TAKE 1 TABLET BY MOUTH TWICE A DAY Rx Instructions: TAKE 1 TABLET BY MOUTH in AM, 1/2 tablet at noon, and 1/2 tablet in PM methotrexate sodium 2.5 mg tablet See Rx Instructions PO .week 84 Days Qty: 150 0RF Rx Instructions: Split dose.. take 10 tabs on the same day once a week, take 5 tabs in the AM and 5 tabs in the PM prednisone 20 mg tablet See Rx Instructions PO .COMPLEX PRN (Reason: joint pain flare) Qty: 30 1RF Rx Instructions: take 1 or 2 tab daily for 5-7 days as needed for arthritis flare PO PRN; hydrocodone-acetaminophen 10-325 mg tablet 1 tab PO Q6H PRN (Reason: pain) 30 Days Qty: 120 0RF Rx Instructions: Do not fill until 01/29/2023 hydrocodone-acetaminophen 10-325 mg tablet 1 tab PO Q6H PRN (Reason: pain) 30 Days Qty: 120 0RF Rx Instructions: Do not fill until 03/29/2023 (DME) OneTouch Ultra Test Strip See Rx Instructions .Route Qty: 400 2RF Rx Instructions: Checking 4-6times (DME) lancets [OneTouch Delica Lancets] 33 gauge misc See Rx Instructions .Route Qty: 100 3RF Rx Instructions: to use to check blood sugar once daily 90 day supply (DME) Auto Titrating C-PAP with supplies settings at 6-16 See Rx Instructions .Route .MEDSUPPLY Qty: 1 0RF Rx Instructions: As directed (DME) lancets [TRUEplus Lancets] 33 gauge misc See Rx Instructions .ROUTE .COMPLEX Qty: 300 0RF Dose Instruction: TEST BLOOD SUGAR DIRECTED Rx Instructions: TEST BLOOD SUGAR DIRECTED (DME) BD Luer-Maddie Syringe 3 mL 23 x 1 syringe See Rx Instructions .ROUTE .COMPLEX Qty: 100 0RF Dose Instruction: USE DIRECTED Rx Instructions: USE DIRECTED metformin 500 mg tablet extended release 24 hr See Rx Instructions .ROUTE .COMPLEX Qty: 360 0RF Dose Instruction: TAKE 2 TABLETS BY MOUTH TWICE A DAY Rx Instructions: TAKE 2 TABLETS BY MOUTH TWICE A DAY enalapril maleate 10 mg tablet 10 mg PO BID Qty: 180 1RF nortriptyline 25 mg capsule See Rx Instructions .ROUTE .COMPLEX Qty: 90 1RF Dose Instruction: TAKE 1 CAPSULE BY MOUTH EVERY DAY Rx Instructions: TAKE 1 CAPSULE BY MOUTH EVERY DAY rosuvastatin 10 mg tablet See Rx Instructions .ROUTE .COMPLEX Qty: 90 1RF Dose Instruction: TAKE 1 TABLET BY MOUTH EVERY DAY Rx Instructions: TAKE 1 TABLET BY MOUTH EVERY DAY (DME) True Metrix Glucose Test Strip Strip See Rx Instructions .ROUTE .COMPLEX Qty: 200 0RF Dose Instruction: CHECK BLOOD SUGAR ONE TO TWO TIMES DAILY Rx Instructions: CHECK BLOOD SUGAR ONE TO TWO TIMES DAILY (DME) True Metrix Level 1 Solution See Rx Instructions .ROUTE .COMPLEX Qty: 1 0RF Dose Instruction: USE DIRECTED WITH GLUCOSE METER Rx Instructions: USE DIRECTED WITH GLUCOSE METER (DME) blood-glucose meter [True Metrix Air Glucose Meter] Kit See Rx Instructions .ROUTE .COMPLEX Qty: 1 0RF Dose Instruction: USE DIRECTED Rx Instructions: USE DIRECTED levothyroxine 88 mcg tablet See Rx Instructions .ROUTE .COMPLEX Qty: 90 0RF Dose Instruction: TAKE 1 TABLET BY MOUTH EVERY DAY Rx Instructions: TAKE 1 TABLET BY MOUTH EVERY DAY hydrocortisone 10 mg tablet 30 mg PO DAILY Qty: 270 0RF [place] 200 mg/1.14 mL pen injector 200 mg SUBCUT .A8tlymy Qty: 2.28 3RF testosterone cypionate [Depo-Testosterone] 200 mg/mL oil 100 mg IM Q10D Qty: 4.5 0RF Genotropin MiniQuick 0.4 mg/0.25 mL syringe 0.4 mg SUBCUT DAILY 30 Days Qty: 7.5 0RF amlodipine 5 mg tablet 5 mg PO QAM glimepiride 2 mg tablet 2 mg PO DAILY PRN (Reason: blood sugars) folic acid 1 mg tablet 1 mg PO QAM Discharge Orders: Discharge ED (Routine); Ordered 02/23/23 Ordered By: Ralf Torre Referrals: Stephy Clay DO [Primary Care Provider] - Patient Instructions: Opioid Safety, Pain Management Coding Level of Care Code ED Telephone Station Installer for Sohan Fwd
[2023-02-23 11:05] LABS: Glucose Point of Care 188 mg/dL (70-110)
[2023-02-23 11:10] LABS: Basophils % 0.2 %; Eosinophils % 0.4 %; Hematocrit 45.2 % (37-53); Lymphocytes # 0.6 10^3/uL (0.8-4.8); Lymphocytes % 5.4 %; Mean Corpuscular HGB Conc 33.4 g/dL (30-55); Mean Corpuscular Hemoglobin 30.1 pg (27-33); Mean Corpuscular Volume 90.2 fl (82-101); Mean Platelet Volume 8.4 fL (7.4-10.4); Monocytes # 0.6 10^3/uL (0.2-0.9); Monocytes % 5.8 %; Neutrophils # 8.98 10^3/uL (1.8-7.7); Neutrophils % 87.5 %; Nucleated Red Blood Cells % 0 %; Platelet Count 243 10^3/cmm (157-399); Red Blood Count 5.01 10^6/uL (3.85-5.65); Red Cell Distribution Width 15.3 % (12.1-15.1); White Blood Count 10.25 10^3/uL (3.29-11.43)
--- NOTE | 2023-02-23 11:10 | US_ITS ---
WS: [id number] ULTRASOUND SOFT TISSUES medial LEFT calf. HISTORY: L calf hematoma COMPARISON: None available. TECHNIQUE: 2-D and color Doppler imaging is submitted. There is a large complex elongated fluid collection along the medial LEFT calf. Complex fluid collect ion extends over a length of at least 6 cm with a diameter of 1.1 cm. There are no areas of increased vascularity. This is a complex collection. No hypervascularity. IMPRESSION: Elongated complex fluid collection in the medial LEFT calf. Differential includes complex Cagle's cys t or partially ruptured Cagle's cyst. If there is recent trauma this could be a soft tissue hematoma.
[2023-02-23 11:24] VITALS: BP 167/100; PULSE 82; RESP 16; O2SAT 98
[2023-02-23 11:36] LABS: Alanine Aminotransferase 30 U/L (0-41); Albumin Level 4.8 g/dL (3.5-5.2); Alkaline Phosphatase 46 U/L (40-130); Anion Gap 14.7 (5-19); Aspartate Amino Transferase 19 U/L (0-40); Blood Urea Nitrogen 15 mg/dL (8-23); Calcium 9.7 mg/dL (8.5-10.5); Carbon Dioxide 30 mmol/L (22-29); Chloride 97 mmol/L (98-107); Globulin 2.2 g/dL (1.3-4.6); Glucose 196 mg/dL (65-115); Osmolality Calculated 290 mOsm/kg (285-295); Potassium 4.7 mmol/L (3.5-5.1); Sodium 137 mmol/L (136-145)
[2023-02-23 12:51] VITALS: BP 167/100; PULSE 82; RESP 16; O2SAT 98
== END 2023-02-23 12:53 | disposition home or self-care (01) ==
PROVIDERS: Emergency Provider Family Medicine; PCP Family Medicine
DX: S80.12XA Contusion of left lower leg, initial encounter (principal); I10 Essential (primary) hypertension; E78.5 Hyperlipidemia, unspecified; E11.9 Type 2 diabetes mellitus without complications; W20.8XXA Other cause of strike by thrown, projected or falling object, initial encounter
CPT/HCPCS: 36415; 36416; 76882; 80053; 82962; 85025; 99284

== ENCOUNTER 2023-05-03 09:37 | Outpatient (CLI) | payer MEDICARE, SELFPAY ==
[2023-05-03 10:29] LABS: Basophils % 1.8 %; Eosinophils # 0.1 10^3/uL (0.0-0.8); Eosinophils % 4.5 %; Hematocrit 45.8 % (37-53); Lymphocytes % 43.6 %; Mean Corpuscular HGB Conc 33.2 g/dL (30-55); Mean Corpuscular Hemoglobin 30.2 pg (27-33); Mean Corpuscular Volume 90.9 fl (82-101); Mean Platelet Volume 8.9 fL (7.4-10.4); Monocytes # 0.5 10^3/uL (0.2-0.9); Monocytes % 20.5 %; Neutrophils % 28.7 %; Nucleated Red Blood Cells % 0 %; Platelet Count 183 10^3/cmm (157-399); Red Blood Count 5.04 10^6/uL (3.85-5.65)
[2023-05-03 10:45] LABS: Estmated Average Glucose 154
[2023-05-03 10:58] LABS: Creatinine Urine, Random 20 mg/dL (39-259); Microalbumin Random Urine 1 ug/dL (0-20)
[2023-05-03 11:00] LABS: Microalbum Creatinine Ratio Ur 50 mg/dL (0-20)
[2023-05-03 11:04] LABS: Prostate Specific Antigen Scr 0.35 ng/mL (0-4)
[2023-05-03 11:05] LABS: Parathyroid Hormone 27.3 pg/mL (15-65)
[2023-05-03 11:08] LABS: Alanine Aminotransferase 23 U/L (0-41); Albumin Level 4.4 g/dL (3.5-5.2); Alkaline Phosphatase 31 U/L (40-130); Aspartate Amino Transferase 26 U/L (0-40); Blood Urea Nitrogen 14 mg/dL (8-23); Calcium 9.1 mg/dL (8.5-10.5); Carbon Dioxide 28 mmol/L (22-29); Chloride 100 mmol/L (98-107); Cholesterol 129 mg/dL (0-200); Free T4 Free Thyroxine 1.52 ng/dL (0.82-1.77); Globulin 1.7 g/dL (1.3-4.6); Glomerular Filtration Rate 96.7 mL/min (90-130); Glucose 117 mg/dL (65-115); HDL Cholesterol 46 mg/dL (60-100); LDL Cholesterol Calculated 68 mg/dL (50-129); LDL HDL Ratio 1.48 RATIO (0.00-3.22); Osmolality Calculated 288 mOsm/kg (285-295); Sodium 138 mmol/L (136-145); Testosterone Total 728.6 ng/dL (193-740); Total Bilirubin 1.2 mg/dL (0.15-1.2); Total Protein 6.1 g/dL (6.6-8.7); Triglycerides 76 mg/dL (0-150)
[2023-05-03 12:24] LABS: Neutrophils # 0.63 10^3/uL (1.8-7.7)
[2023-05-07 13:15] LABS: Quantiferon Mitogen 9.72 IU/mL; Quantiferon Nil 0.02 IU/mL; Quantiferon TB Gold NEGATIVE (NEGATIVE)
[2023-05-07 15:30] LABS: Testosterone, Free 131.5 pg/mL (46.0-224.0)
[2023-05-08 13:24] LABS: IGF1 LC/MS 174 ng/mL (41-279); Z Score (Male) 0.9 SD (-2.0 - +2.0)
== END 2023-05-03 09:38 | disposition home or self-care (01) ==
PROVIDERS: Internal Medicine Rheumatology; PCP Family Medicine; Visit Provider Internal Medicine
DX: E11.9 Type 2 diabetes mellitus without complications (principal); E27.49 Other adrenocortical insufficiency; E03.8 Other specified hypothyroidism; E23.6 Other disorders of pituitary gland; Z79.899 Other long term (current) drug therapy; Z11.1 Encounter for screening for respiratory tuberculosis; Z12.5 Encounter for screening for malignant neoplasm of prostate
CPT/HCPCS: 36415; 80053; 80061; 82044; 82310; 83036; 83970; 84305; 84402; 84403; 84439; 85025; 86480; G0103

== ENCOUNTER → 2023-05-04 09:51 | Outpatient (BNVA) | payer MEDICARE, SELFPAY | PROVIDERS: PCP Family Medicine; Visit Provider Specialist | DX: G56.03 Carpal tunnel syndrome, bilateral upper limbs (principal); G56.21 Lesion of ulnar nerve, right upper limb | CPT/HCPCS: 95911 ==

== ENCOUNTER 2023-05-07 14:05 | Outpatient (CLI) | payer MEDICARE, SELFPAY ==
[2023-05-07 14:50] LABS: Basophils % 0.7 %; Eosinophils # 0.1 10^3/uL (0.0-0.8); Eosinophils % 1.5 %; Hematocrit 44.3 % (37-53); Lymphocytes # 0.7 10^3/uL (0.8-4.8); Mean Corpuscular HGB Conc 33.2 g/dL (30-55); Mean Corpuscular Hemoglobin 29.9 pg (27-33); Mean Corpuscular Volume 90.2 fl (82-101); Mean Platelet Volume 9.2 fL (7.4-10.4); Monocytes # 0.5 10^3/uL (0.2-0.9); Monocytes % 11.1 %; Neutrophils # 2.88 10^3/uL (1.8-7.7); Neutrophils % 70.7 %; Nucleated Red Blood Cells % 0 %; Platelet Count 182 10^3/cmm (157-399); Red Blood Count 4.91 10^6/uL (3.85-5.65); Red Cell Distribution Width 14.6 % (12.1-15.1); White Blood Count 4.07 10^3/uL (3.29-11.43)
== END 2023-05-07 14:06 | disposition home or self-care (01) ==
LOC: LAB 14:08
PROVIDERS: PCP Family Medicine; Visit Provider Internal Medicine Rheumatology
DX: D72.819 Decreased white blood cell count, unspecified (principal)
CPT/HCPCS: 36415; 85025

== ENCOUNTER → 2023-05-08 10:38 | Outpatient (BNVA) | payer MEDICARE, SELFPAY | PROVIDERS: PCP Family Medicine; Visit Provider Internal Medicine Rheumatology | DX: M54.2 Cervicalgia (principal); Z79.899 Other long term (current) drug therapy; M06.00 Rheumatoid arthritis without rheumatoid factor, unspecified site; Z71.85 Encounter for immunization safety counseling; E23.6 Other disorders of pituitary gland | CPT/HCPCS: 99214 ==

== ENCOUNTER 2023-05-14 11:31 | Outpatient (CLI) | payer MEDICARE, SELFPAY ==
--- NOTE | 2023-05-14 11:38 | XR_ITS ---
WS: [id number] Right shoulder, 2 views, 05/14/2023 Clinical Data: M25.519 - Pain in unspecified shoulder Comparison: Right shoulder, 10/26/2020 Findings: No fractures or dislocations are seen. The AC joint is normal. The adjacent right clavicle, right sca pula and ribs are normal. The soft tissues are unremarkable. The glenoid rim and adjacent humeral head show mild osteoarthritic change. Impression: Mild osteoarthritis of the right glenohumeral joint.
--- NOTE | 2023-05-14 11:52 | XR_ITS ---
WS: [email or web address] Cervical spine, 3 views, 05/14/2023 Clinical Data: M54.2 - Cervicalgia Comparison: None. Findings: No compression fractures are seen. There is degenerative disc narrowing at C3-C4, C5-C6 and C6-C7 with osteophyte formation at these levels. There is no prevertebral soft tissue swelling. The odontoid is unremarkable. The soft tissues of the neck and the lung apices are normal. Impression: Degenerative disc narrowing at C3-C4, C5-C6 and C6-C7 with osteophytes.
== END 2023-05-14 11:32 | disposition home or self-care (01) ==
LOC: RAD 11:32
PROVIDERS: PCP Family Medicine; Visit Provider Internal Medicine Rheumatology
DX: M19.011 Primary osteoarthritis, right shoulder; M47.892 Other spondylosis, cervical region; M54.2 Cervicalgia; M25.511 Pain in right shoulder; E11.9 Type 2 diabetes mellitus without complications; E27.49 Other adrenocortical insufficiency; E03.8 Other specified hypothyroidism; E23.6 Other disorders of pituitary gland; E23.0 Hypopituitarism; M81.0 Age-related osteoporosis without current pathological fracture; E78.5 Hyperlipidemia, unspecified; D35.2 Benign neoplasm of pituitary gland
CPT/HCPCS: 72040; 73030; 99214

== ENCOUNTER 2023-06-12 10:25 | Outpatient (CLI) | payer MEDICARE, SELFPAY ==
[2023-06-12 11:07] LABS: Basophils # 0.1 10^3/uL (0.0-0.1); Basophils % 2.7 %; Eosinophils # 0.3 10^3/uL (0.0-0.8); Eosinophils % 12.4 %; Lymphocytes # 0.7 10^3/uL (0.8-4.8); Lymphocytes % 32.7 %; Mean Corpuscular HGB Conc 33.6 g/dL (30-55); Mean Corpuscular Hemoglobin 29.6 pg (27-33); Mean Corpuscular Volume 88.2 fl (82-101); Mean Platelet Volume 8.5 fL (7.4-10.4); Monocytes # 0.4 10^3/uL (0.2-0.9); Monocytes % 19.5 %; Neutrophils % 32.7 %; Nucleated Red Blood Cells % 0 %; Platelet Count 143 10^3/cmm (157-399); Red Blood Count 5.33 10^6/uL (3.85-5.65); Red Cell Distribution Width 13.5 % (12.1-15.1); White Blood Count 2.26 10^3/uL (3.29-11.43)
[2023-06-12 11:33] LABS: Alanine Aminotransferase 30 U/L (0-41); Albumin Level 4.3 g/dL (3.5-5.2); Alkaline Phosphatase 32 U/L (40-130); Aspartate Amino Transferase 29 U/L (0-40); Globulin 1.9 g/dL (1.3-4.6); Glomerular Filtration Rate 96.7 mL/min (90-130); Total Bilirubin 1.3 mg/dL (0.15-1.2); Total Protein 6.2 g/dL (6.6-8.7)
[2023-06-12 11:36] LABS: Neutrophils # 0.74 10^3/uL (1.8-7.7)
== END 2023-06-12 10:26 | disposition home or self-care (01) ==
LOC: LAB 10:27
PROVIDERS: PCP Family Medicine; Visit Provider Internal Medicine Rheumatology
DX: Z79.899 Other long term (current) drug therapy (principal); M06.00 Rheumatoid arthritis without rheumatoid factor, unspecified site
CPT/HCPCS: 36415; 80076; 82565; 85025; 86140

== ENCOUNTER → 2023-06-25 10:49 | Outpatient (BNVA) | payer MEDICARE, SELFPAY | PROVIDERS: PCP Family Medicine; Referring Provider Family Medicine; Visit Provider Specialist | DX: G56.03 Carpal tunnel syndrome, bilateral upper limbs (principal); G56.21 Lesion of ulnar nerve, right upper limb | CPT/HCPCS: 73130; 99204 ==

== ENCOUNTER 2023-07-14 09:43 | Outpatient (CLI) | payer MEDICARE, SELFPAY ==
[2023-07-14 10:27] LABS: Basophils % 1.7 %; Eosinophils # 0.3 10^3/uL (0.0-0.8); Eosinophils % 10.9 %; Hematocrit 45.9 % (37-53); Lymphocytes # 0.9 10^3/uL (0.8-4.8); Lymphocytes % 38.5 %; Mean Corpuscular HGB Conc 33.8 g/dL (30-55); Mean Corpuscular Hemoglobin 29.5 pg (27-33); Mean Corpuscular Volume 87.4 fl (82-101); Mean Platelet Volume 9.1 fL (7.4-10.4); Monocytes # 0.4 10^3/uL (0.2-0.9); Monocytes % 15.9 %; Nucleated Red Blood Cells % 0 %; Platelet Count 159 10^3/cmm (157-399); Red Blood Count 5.25 10^6/uL (3.85-5.65); Red Cell Distribution Width 13.2 % (12.1-15.1); White Blood Count 2.39 10^3/uL (3.29-11.43)
[2023-07-14 10:30] LABS: Neutrophils # 0.79 10^3/uL (1.8-7.7)
== END 2023-07-14 09:44 | disposition home or self-care (01) ==
PROVIDERS: PCP Family Medicine; Visit Provider Internal Medicine Rheumatology
DX: D72.819 Decreased white blood cell count, unspecified (principal)
CPT/HCPCS: 36415; 85025

== ENCOUNTER 2023-08-02 09:54 | Outpatient (CLI) | payer MEDICARE, SELFPAY ==
[2023-08-02 10:38] LABS: Basophils # 0.1 10^3/uL (0.0-0.1); Basophils % 0.8 %; Eosinophils # 0.2 10^3/uL (0.0-0.8); Eosinophils % 2.5 %; Hematocrit 46.2 % (37-53); Lymphocytes # 1.2 10^3/uL (0.8-4.8); Lymphocytes % 19.1 %; Mean Corpuscular HGB Conc 34.6 g/dL (30-55); Mean Corpuscular Hemoglobin 30.1 pg (27-33); Mean Corpuscular Volume 86.8 fl (82-101); Mean Platelet Volume 8.8 fL (7.4-10.4); Monocytes # 0.5 10^3/uL (0.2-0.9); Monocytes % 8.2 %; Neutrophils # 4.37 10^3/uL (1.8-7.7); Neutrophils % 69.2 %; Nucleated Red Blood Cells % 0 %; Platelet Count 166 10^3/cmm (157-399); Red Blood Count 5.32 10^6/uL (3.85-5.65); Red Cell Distribution Width 13.4 % (12.1-15.1); White Blood Count 6.32 10^3/uL (3.29-11.43)
[2023-08-02 11:08] LABS: Creatinine Urine, Random 22 mg/dL (39-259); Microalbumin Random Urine 1 ug/dL (0-20)
[2023-08-02 11:10] LABS: Alanine Aminotransferase 25 U/L (0-41); Albumin Level 4.6 g/dL (3.5-5.2); Alkaline Phosphatase 35 U/L (40-130); Anion Gap 16.4 (5-19); Aspartate Amino Transferase 28 U/L (0-40); Blood Urea Nitrogen 21 mg/dL (8-23); Calcium 8.7 mg/dL (8.5-10.5); Carbon Dioxide 25 mmol/L (22-29); Chloride 101 mmol/L (98-107); Chol HDL Ratio 2.49 mg/dL (1.0-5.00); Cholesterol 132 mg/dL (0-200); Globulin 1.8 g/dL (1.3-4.6); Glomerular Filtration Rate 84.4 mL/min (90-130); Glucose 79 mg/dL (65-115); HDL Cholesterol 53 mg/dL (60-100); LDL Cholesterol Calculated 57 mg/dL (50-129); LDL HDL Ratio 1.08 RATIO (0.00-3.22); Osmolality Calculated 288 mOsm/kg (285-295); Potassium 4.4 mmol/L (3.5-5.1); Sodium 138 mmol/L (136-145); Total Bilirubin 1.8 mg/dL (0.15-1.2); Total Protein 6.4 g/dL (6.6-8.7); Triglycerides 109 mg/dL (0-150)
[2023-08-02 11:13] LABS: Microalbum Creatinine Ratio Ur 45 mg/dL (0-20)
[2023-08-02 11:16] LABS: Free T4 Free Thyroxine 1.36 ng/dL (0.82-1.77)
[2023-08-02 11:57] LABS: Estmated Average Glucose 140; Hemoglobin A1C 6.5 % (4.0-6.0)
[2023-08-09 18:29] LABS: IGF1 LC/MS 63 ng/mL (41-279); Z Score (Male) -1.2 SD (-2.0 - +2.0)
== END 2023-08-02 09:55 | disposition home or self-care (01) ==
LOC: LAB 10:01
PROVIDERS: Absent Provider Internal Medicine Rheumatology; PCP Family Medicine; Visit Provider Internal Medicine
DX: E11.9 Type 2 diabetes mellitus without complications (principal); E27.49 Other adrenocortical insufficiency; E23.6 Other disorders of pituitary gland; E78.5 Hyperlipidemia, unspecified; D35.2 Benign neoplasm of pituitary gland; E03.8 Other specified hypothyroidism; Z79.899 Other long term (current) drug therapy
CPT/HCPCS: 36415; 80053; 80061; 82044; 83036; 84305; 84403; 84439; 85025

== ENCOUNTER → 2023-08-13 09:33 | Outpatient (BNVA) | payer MEDICARE, SELFPAY | PROVIDERS: PCP Family Medicine; Visit Provider Internal Medicine | DX: E11.9 Type 2 diabetes mellitus without complications (principal); E27.49 Other adrenocortical insufficiency; E78.5 Hyperlipidemia, unspecified; E23.0 Hypopituitarism; E03.8 Other specified hypothyroidism; Z79.899 Other long term (current) drug therapy; E23.6 Other disorders of pituitary gland; M81.0 Age-related osteoporosis without current pathological fracture; D35.2 Benign neoplasm of pituitary gland | CPT/HCPCS: 99214 ==

== ENCOUNTER → 2023-09-03 13:09 | Outpatient (BNVA) | payer MEDICARE, SELFPAY | PROVIDERS: PCP Family Medicine; Visit Provider Family Medicine | DX: R17 Unspecified jaundice (principal); Z13.6 Encounter for screening for cardiovascular disorders | CPT/HCPCS: 80053 ==

== ENCOUNTER 2023-09-05 08:22 | Outpatient (CLI) | payer MEDICARE, SELFPAY ==
--- NOTE | 2023-09-05 08:45 | US_ITS ---
WS: [email or web address] RIGHT UPPER QUADRANT ULTRASOUND HISTORY: elevated bili COMPARISON: None available. Liver: 14.7 cm in length. Normal size liver and echogenicity. No bile duct dilatation or mass. Portal Vein: Normal hepatopetal flow with monophasic waveform. Gallbladder: Normally distended gallbladder with no stones or wall thickening. CBD: 0.2 cm Pancreas: Normal size and echogenicity. Right kidney: 10.2 cm in length. Normal size and echogenicity. No hydronephrosis or mass. Aorta and IVC: Unremarkable abdominal aorta and IVC. No ascites. IMPRESSION: Normal right upper quadrant ultrasound.
== END 2023-09-05 08:23 | disposition home or self-care (01) ==
LOC: RAD 08:22
PROVIDERS: PCP Family Medicine; Visit Provider Family Medicine
DX: R17 Unspecified jaundice (principal)
CPT/HCPCS: 76705

== ENCOUNTER 2023-10-23 11:03 | Outpatient (CLI) | payer MEDICARE, SELFPAY ==
--- NOTE | 2023-10-23 11:51 | XR_ITS ---
WS: [id number] Exam: XR hand RT min 3V* [id number] Date/Time of Exam: 10/23/2023 11:51 AM Reason For Exam: swelling and pain No acute fracture or dislocation. A prosthesis replaces the head of the third metacarpal. Moderately advanced degenerative changes in the MP joints. Mild degenerative changes in the IP joints. There is ulnar deviation of the second through the fifth digits. Degenerative change at the radiocarpal joint. Signs of ulnar abutment. XR/XR hand RT min 3V* [id number] IMPRESSION: 1. Degenerative changes of the hand with ulnar deviation of the second through the fifth digits. Rheumatoid arthritis might be considered. 2. 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
== END 2023-10-23 11:04 | disposition home or self-care (01) ==
LOC: RAD 11:07
PROVIDERS: PCP Family Medicine; Visit Provider Family Medicine
DX: M19.031 Primary osteoarthritis, right wrist (principal); M20.099 Other deformity of finger(s), unspecified finger(s)
CPT/HCPCS: 73130

== ENCOUNTER → 2023-10-31 10:47 | Outpatient (BNVA) | payer MEDICARE, SELFPAY | PROVIDERS: PCP Family Medicine; Visit Provider Internal Medicine Rheumatology | DX: Z79.899 Other long term (current) drug therapy (principal); M06.00 Rheumatoid arthritis without rheumatoid factor, unspecified site; Z71.85 Encounter for immunization safety counseling; E23.6 Other disorders of pituitary gland | CPT/HCPCS: 80076; 82565; 85025; 86140; 99214 ==

== ENCOUNTER 2023-12-04 09:07 | Outpatient (CLI) | payer MEDICARE, SELFPAY ==
[2023-12-04 09:59] LABS: Basophils % 0.8 %; Eosinophils # 0.2 10^3/uL (0.0-0.8); Eosinophils % 4.7 %; Hematocrit 46.7 % (37-53); Lymphocytes # 1.3 10^3/uL (0.8-4.8); Lymphocytes % 27.3 %; Mean Corpuscular Hemoglobin 29.6 pg (27-33); Mean Corpuscular Volume 86.8 fl (82-101); Mean Platelet Volume 8.8 fL (7.4-10.4); Monocytes # 0.4 10^3/uL (0.2-0.9); Monocytes % 7.6 %; Neutrophils % 59.4 %; Nucleated Red Blood Cells % 0 %; Platelet Count 188 10^3/cmm (157-399); Red Blood Count 5.38 10^6/uL (3.85-5.65); Red Cell Distribution Width 13.2 % (12.1-15.1); White Blood Count 4.72 10^3/uL (3.29-11.43)
[2023-12-04 10:12] LABS: Estmated Average Glucose 151; Hemoglobin A1C 6.9 % (4.0-6.0)
[2023-12-04 10:21] LABS: Alanine Aminotransferase 26 U/L (0-41); Albumin Level 4.5 g/dL (3.5-5.2); Alkaline Phosphatase 38 U/L (40-130); Anion Gap 16.4 (5-19); Aspartate Amino Transferase 21 U/L (0-40); Blood Urea Nitrogen 17 mg/dL (8-23); Carbon Dioxide 28 mmol/L (22-29); Chloride 99 mmol/L (98-107); Chol HDL Ratio 2.37 mg/dL (1.0-5.00); Cholesterol 123 mg/dL (0-200); Globulin 2.2 g/dL (1.3-4.6); Glomerular Filtration Rate 96.7 mL/min (90-130); Glucose 136 mg/dL (65-115); HDL Cholesterol 52 mg/dL (60-100); LDL Cholesterol Calculated 54 mg/dL (50-129); LDL HDL Ratio 1.04 RATIO (0.00-3.22); Osmolality Calculated 292 mOsm/kg (285-295); Potassium 4.4 mmol/L (3.5-5.1); Sodium 139 mmol/L (136-145); Total Bilirubin 0.8 mg/dL (0.15-1.2); Total Protein 6.7 g/dL (6.6-8.7); Triglycerides 83 mg/dL (0-150)
[2023-12-04 10:24] LABS: Creatinine Urine, Random 29 mg/dL (39-259); Microalbum Creatinine Ratio Ur 34 mg/dL (0-20); Microalbumin Random Urine 1 ug/dL (0-20)
[2023-12-04 10:25] LABS: Free T4 Free Thyroxine 1.46 ng/dL (0.82-1.77); Testosterone Total 417.3 ng/dL (193-740)
== END 2023-12-04 09:08 | disposition home or self-care (01) ==
LOC: LAB 09:09
PROVIDERS: Absent Provider Internal Medicine Rheumatology; PCP Family Medicine; Visit Provider Internal Medicine
DX: E11.9 Type 2 diabetes mellitus without complications (principal); E27.49 Other adrenocortical insufficiency; E78.5 Hyperlipidemia, unspecified; E23.0 Hypopituitarism; Z79.899 Other long term (current) drug therapy; E03.8 Other specified hypothyroidism
CPT/HCPCS: 36415; 80053; 80061; 82044; 83036; 84403; 84439; 85025

== ENCOUNTER → 2024-01-15 10:05 | Outpatient (BNVA) | payer MEDICARE, SELFPAY | PROVIDERS: PCP Family Medicine; Visit Provider Student in an Organized Health Care Education/Training Program | DX: G56.03 Carpal tunnel syndrome, bilateral upper limbs (principal); G56.23 Lesion of ulnar nerve, bilateral upper limbs | CPT/HCPCS: 73080; 73130; 99214 ==

== ENCOUNTER 2024-01-18 10:46 | Emergency (ER) | payer MEDICARE, SELFPAY ==
[2024-01-18 11:07] VITALS: BP 121/71; PULSE 92; RESP 18; TEMP 36.7; O2SAT 95; BMI 23.3
[2024-01-18 11:33] LABS: Basophils % 0.4 %; Eosinophils % 0.2 %; Lymphocytes # 0.2 10^3/uL (0.8-4.8); Lymphocytes % 3.3 %; Mean Corpuscular HGB Conc 33.7 g/dL (30-55); Mean Corpuscular Hemoglobin 29.4 pg (27-33); Mean Platelet Volume 8.3 fL (7.4-10.4); Monocytes # 0.8 10^3/uL (0.2-0.9); Monocytes % 15.4 %; Neutrophils # 4.33 10^3/uL (1.8-7.7); Neutrophils % 80.5 %; Nucleated Red Blood Cells % 0 %; Platelet Count 156 10^3/cmm (157-399); Red Blood Count 4.94 10^6/uL (3.85-5.65); Red Cell Distribution Width 13.5 % (12.1-15.1); White Blood Count 5.38 10^3/uL (3.29-11.43)
--- NOTE | 2024-01-18 11:47 | XR_ITS ---
WS: [id number] Portable AP upright chest, 01/18/2024 Clinical Data: Weakness Comparison: Two-view chest, 11/17/2021 Findings: No nodules, masses or effusions are seen. The heart is normal. The pulmonary vascularity is not increased. No pneumonia or pneumothorax is seen. The aortic arch and descending thoracic aorta s how mild tortuosity. XR/XR chest 1V portable [id number] Impression: Atherosclerosis.
--- NOTE | 2024-01-18 11:47 | ED_ITS ---
HPI - Weakness 2 General: Chief complaint: Weakness Stated complaint: weak,headache Time Seen by Provider: 01/18/24 11:44 History of Present Illness: 68-year-old man with a history of rheuma toid arthritis, hypertension, chronic pain syndrome on oxycodone, diabetes, hyperlipidemia who presents to the emergency room after he awoke with a headache at about 5 AM this morning that was extremely severe. He took an oxycodone and that is improved some. He says now he feels extremely weak and tired. Nothing focal. No cough. No fevers. No abdominal pain. No nausea or vomiting. No altered mental status no focal motor deficits. Review of Systems 2 Narrative: Constitutional symptoms: Negative except as documented in HPI. Skin symptoms: Negative except as documented in HPI. Eye symptoms: Negative except as documented in HPI. ENMT symptoms: Negative except as documented in HPI. Respiratory symptoms: Negative except as documented in HPI. Cardiovascular symptoms: Negative except as documented in HPI. Gastrointestinal symptoms: Negative except as documented in HPI. Genitourinary symptoms: Negative except as documented in HPI. Musculoskeletal symptoms: Negative except as documented in HPI. Neurologic symptoms: Negative except as documented in HPI. Psychiatric symptoms: Negative except as documented in HPI. Endocrine symptoms: Negative except as documented in HPI. 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 High risk medication use Secondary hypothyroidism Type 2 diabetes mellitus, without long-term current use of insulin Erectile dysfunction Essential hypertension Hyperlipidemia Benign tumor of pituitary gland Surgical History History of carpal tunnel surgery Bilateral History of left hip replacement H/O elbow surgery Bilateral ulnar release Family History Father Heart attack Mother Breast cancer Social History Smoking and tobacco/nicotine status: never used tobacco/nicotine Second hand smoke exposure: No Alcohol intake: never Substance/Drug Use: never Physical Exam 2 Narrative: EXAM NARRATIVE: General: Alert, no acute distress. Skin: Warm, dry. Head: Normocephalic, atraumatic. Neck: Supple, trachea midline. Eye: Extraocular movements are intact. Ears, nose, mouth and throat: mucosa moist. Cardiovascular: Regular, Normal peripheral perfusion. Respiratory: Lungs are clear to auscultation, respirations are non-labored, breath sounds are equal, Symmetrical chest wall expansion. Gastrointestinal: Soft, Nontender, Non distended Musculoskeletal: Normal ROM, no deformity. Neurological: Alert and oriented, No focal neurological deficit observed. Psychiatric: Cooperative, appropriate mood & affect. Course 2 Vital Signs: Vital signs: Vital Signs Temperature 98.1 F 01/18/24 11:07 Pulse Rate 73 01/18/24 14:34 Respiratory Rate 18 01/18/24 14:34 Blood Pressure 120/73 01/18/24 14:34 Pulse Oximetry 97 01/18/24 14:34 Oxygen Delivery Me thod Room Air 01/18/24 14:34 MDM - Weakness Medical Decision Making Medical decision making: Differential diagnosis for patient presenting with generalized weakness including but not limited to and based on the above HPI, review of systems and physical exam: Sepsis. Dehydration. Renal failure. Electrolyte abnormalities. Anemia. Congestive heart failure. Hypotension. Coronary syndrome. Hepatitis. Cirrhosis. Infections such as pneumonia, urinary tract infection, [place] illness, Cellulitis, Viral infections including influenza and Covid-19. Workup: labwork and lab/exam driven imaging ordered to evaluate, rule in and rule out above pathologies. EKG: Time 1201. Rate 75. Normal sinus rhythm, No ST-T changes, no ectopy, normal WI & QRS intervals, This was reviewed and interpreted by myself the ER physician at 1205 Repeat EKG: Time 1356. Rate 64. Normal sinus rhythm, No ST-T changes, no ectopy, normal WI & QRS intervals, This was reviewed and interpreted by myself the ER physician at 1400. No significant changes from previous EKG in the emergency room today CT head: No acute intracranial process. no intracranial hemorrhage, no evidence of infarct. no evidence of acute fracture.This was reviewed and interpreted by myself the ER physician. Chest x-ray: No acute process. No infiltrate. No pneumothorax. This was reviewed and interpreted by myself the ER physician. Lab Review: Laboratory results were reviewed and interpreted by myself the emergency room physician. Patient is COVID-positive. Also mild hyponatremia at 128. Fluids been given. He feels quite a bit better at this point. Glucose is little high at 288. Fluids will help with that. I reviewed the patient's medical record. Reexamination: Patient remained stable. No increased work of breathing. No altered mental status. No focal motor deficits. Prior to COVID, back I had spoken with the patient extensively about symptoms when he had the pituitary tumor in the past. Apparently was benign and had ruptured spontaneously and had left him with double vision for a while but had improved. He felt like the headache was kind of similar to this. I do not have MRI available today but we talked about if symptoms worsen that he needs to come back and we will send him for MRI somewhere else or they can go there. However his symptoms seem more related to COVID than to a recurrence of the tumor. Assessment and plan: COVID-19 Hyponatremia Headache Dehydration -Normal saline bolus in the emergency room. Patient has resolved quite a bit. [place] called in. - Discharged home - Discussed findings and plan with patient. Answered any questions. - All laboratory values were reviewed and interpreted personally by myself, the ER physician - All imaging was reviewed and interpreted personally by myself, the ER physician. - Evaluation and treatment of this problem were appropriate in the emergency setting Lab Data 01/18/24 11:22 01/18/24 11:22 Radiology Impressions Chest X-Ray 01/18/24 11:47 Impression: Atherosclerosis. Head CT 01/18/24 11:47 IMPRESSION: 1. No acute intracranial hemorrhage or edema. 2. Very mild volume loss and small vessel disease. Laboratory Results WBC 5.38 10^3/uL (3.29-11.43) 01/18/24 11:22 RBC 4.94 10^6/uL (3.85-5.65) 01/18/24 11:22 Hgb 14.50 g/dL (11.27-16.99) 01/18/24 11:22 Hct 43.0 % (37-53) 01/18/24 11:22 MCV 87.0 fl (82-101) 01/18/24 11:22 MCH 29.4 pg (27-33) 01/18/24 11:22 MCHC 33.7 g/dL (30-55) 01/18/24 11:22 RDW 13.5 % (12.1-15.1) 01/18/24 11:22 Plt Count 156 10^3/cmm (157-399) L 01/18/24 11:22 MPV 8.3 fL (7.4-10.4) 01/18/24 11:22 Neut % (Auto) 80.5 % 01/18/24 11:22 Lymph % (Auto) 3.3 % 01/18/24 11:22 Clare % (Auto) 15.4 % 01/18/24 11:22 Eos % (Auto) 0.2 % 01/18/24 11:22 Baso % (Auto) 0.4 % 01/18/24 11:22 Neut # (Auto) 4.33 10^3/uL (1.8-7.7) 01/18/24 11:22 Lymph # (Auto) 0.2 10^3/uL (0.8-4.8) L 01/18/24 11:22 Clare # (Auto) 0.8 10^3/uL (0.2-0.9) 01/18/24 11:22 Eos # (Auto) 0.0 10^3/uL (0.0-0.8) 01/18/24 11:22 Baso # (Auto) 0.0 10^3/uL (0.0-0.1) 01/18/24 11:22 Nucleated RBC % (auto) 0 % 01/18/24 11:22 Nucleated RBCs # 0.0 /100WBC 01/18/24 11:22 Sodium 128 mmol/L (136-145) L 01/18/24 11:22 Potassium 4.8 mmol/L (3.5-5.1) 01/18/24 11:22 Chloride 93 mmol/L (98-107) L 01/18/24 11:22 Carbon Dioxide 21 mmol/L (22-29) L 01/18/24 11:22 Anion Gap 18.8 (5-19) 01/18/24 11:22 BUN 13 mg/dL (8-23) 01/18/24 11:22 Creatinine 1.0 mg/dL (0.7-1.2) 01/18/24 11:22 GFR Calculation 74.8 mL/min (90-130) L 01/18/24 11:22 Glucose 288 mg/dL (65-115) H 01/18/24 11:22 Calculated Osmolality 277 mOsm/kg (285-295) L 01/18/24 11:22 Lactic Acid 2.0 mmol/L (0.5-2.2) 01/18/24 11:22 Calcium 8.4 mg/dL (8.5-10.5) L 01/18/24 11:22 Total Bilirubin 0.4 mg/dL (0.15-1.2) 01/18/24 11:22 AST 27 U/L (0-40) 01/18/24 11:22 ALT 23 U/L (0-41) 01/18/24 11:22 Alkaline Phosphatase 39 U/L (40-130) L 01/18/24 11:22 Troponin T Baseline < 6 ng/L (0-15) 01/18/24 11:22 Troponin T 120 Minute 7.39 ng/L (0-15) 01/18/24 13:38 Delta Troponin T 1.11466 ABS# (0-10) 01/18/24 13:38 C-Reactive Protein 7.8 mg/L (0.0-4.9) H 01/18/24 11:22 Total Protein 6.7 g/dL (6.6-8.7) 01/18/24 11:22 Albumin 4.0 g/dL (3.5-5.2) 01/18/24 11:22 Globulin 2.7 g/dL (1.3-4.6) 01/18/24 11:22 Procalcitonin 0.16 ng/mL (0-0.5) 01/18/24 11:22 Urine Color Yellow (Yellow) 01/18/24 14:07 Urine Appearance Clear (CLEAR) 01/18/24 14:07 Urine pH 7.0 (5-7) 01/18/24 14:07 Ur Specific [place] 1.010 (1.005-1.030) 01/18/24 14:07 Urine Protein Negative (Negative) 01/18/24 14:07 Urine Glucose (UA) 2+ (Normal) H 01/18/24 14:07 Urine Ketones Negative (Negative) 01/18/24 14:07 Urine Blood Negative (Negative) 01/18/24 14:07 Urine Nitrate Negative (Negative) 01/18/24 14:07 Urine Bilirubin Negative (Negative) 01/18/24 14:07 Urine Urobilinogen 0.2 mg/dL (Negative) 01/18/24 14:07 Ur Leukocyte Esterase Negative (Negative) 01/18/24 14:07 Urine RBC 0-2 /hpf (0-2) 01/18/24 14:07 Urine WBC 0-5 /hpf (0-5) 01/18/24 14:07 Ur Squamous Epith Cells 0-5 /hpf (0-5) 01/18/24 14:07 Amorphous Sediment Not Reportable 01/18/24 14:07 Urine Bacteria None seen /hpf (NONE) 01/18/24 14:07 Hyaline Casts 0-4 /lpf H 01/18/24 14:07 Adenovirus (PCR) Not detected (NOT DETECT) 01/18/24 12:35 C. pneumoniae DNA (PCR) Not detected (NOT DETECT) 01/18/24 12:35 Coronavirus 229E (PCR) Not detected (NOT DETECT) 01/18/24 12:35 Human Metapneumovir PCR Not detected (NOT DETECT) 01/18/24 12:35 Influenza A (H1) PCR Not detected (NOT DETECT) 01/18/24 12:35 Influ A (H1/09) PCR Not detected (NOT DETECT) 01/18/24 12:35 Influenza A (H3) PCR Not detected (NOT DETECT) 01/18/24 12:35 Influenza Type A (PCR) Not detected (NOT DETECT) 01/18/24 12:35 Influenza Type B (PCR) Not detected (NOT DETECT) 01/18/24 12:35 M. pneumoniae (PCR) Not detected (NOT DETECT) 01/18/24 12:35 Parainfluenza 1 (PCR) Not detected (NOT DETECT) 01/18/24 12:35 Parainfluenza 2 (PCR) Not detected (NOT DETECT) 01/18/24 12:35 Parainfluenza 3 (PCR) Not detected (NOT DETECT) 01/18/24 12:35 Parainfluenza 4 (PCR) Not detected (NOT DETECT) 01/18/24 12:35 RSV Type A (PCR) Not detected (NOT DETECT) 01/18/24 12:35 RSV Type B (PCR) Not detected (NOT DETECT) 01/18/24 12:35 Entero/Rhino (PCR) Not detected (NOT DETECT) 01/18/24 12:35 SARS-CoV-2 (PCR) Detected (NOT DETECT) A 01/18/24 12:35 All radiology interpretation(s) finalized by discharge Discharge Plan Discharge Patient Disposition: Home Clinical Impression: COVID-19, Headache, Hyponatremia Condition: Stable Prescriptions: New Paxlovid 300 mg (150 mg x 2)-100 mg tablets,dose pack See Rx Instructions .ROUTE .COMPLEX Qty: 30 0RF Rx Instructions: take TWO 150 mg tablets of nirmatrelvir with ONE 100 mg tablet of ritonavir twice daily for 5 days No Action prednisone 5 mg tablet 5 mg PO DAILY PRN (Reason: joint pain flare) Qty: 90 1RF (DME) Auto Titrating C-PAP with supplies settings at 6-16 See Rx Instructions .Route .MEDSUPPLY Qty: 1 0RF Rx Instructions: As directed (DME) BD Luer-Maddie Syringe 3 mL 23 x 1 syringe See Rx Instructions .ROUTE .COMPLEX Qty: 100 0RF Dose Instruction: USE DIRECTED Rx Instructions: USE DIRECTED (DME) True Metrix Level 1 Solution See Rx Instructions .ROUTE .COMPLEX Qty: 1 0RF Dose Instruction: USE DIRECTED WITH GLUCOSE METER Rx Instructions: USE DIRECTED WITH GLUCOSE METER (DME) blood-glucose meter [True Metrix Air Glucose Meter] Kit See Rx Instructions .ROUTE .COMPLEX Qty: 1 0RF Dose Instruction: USE DIRECTED Rx Instructions: USE DIRECTED (DME) lancets [OneTouch Delica Plus Lancet] 33 gauge misc See Rx Instructions .ROUTE .COMPLEX Qty: 100 3RF Dose Instruction: TO USE TO CHECK BLOOD SUGAR ONCE DAILY 90 DAY SUPPLY Rx Instructions: TO USE TO CHECK BLOOD SUGAR ONCE DAILY 90 DAY SUPPLY (DME) lancets [TRUEplus Lancets] 33 gauge misc See Rx Instructions .ROUTE .COMPLEX Qty: 600 3RF Dose Instruction: TEST BLOOD SUGAR DIRECTED Rx Instructions: TEST BLOOD SUGAR DIRECTED (DME) True Metrix Glucose Test Strip Strip See Rx Instructions .ROUTE .COMPLEX Qty: 500 3RF Dose Instruction: CHECK BLOOD SUGAR 4 TO 6 TIMES A DAY Rx Instructions: CHECK BLOOD SUGAR 4 TO 6 TIMES A DAY testosterone cypionate [Depo-Testosterone] 200 mg/mL oil 100 mg IM Q10D Qty: 4.5 0RF (DME) pen needle, diabetic [BD Kathy 2nd Gen Pen Needle] 32 gauge x 5/32 needle See Rx Instructions .ROUTE .COMPLEX Qty: 100 2RF Dose Instruction: FOR USE WITH INSULIN PRODUCTS Rx Instructions: FOR USE WITH INSULIN PRODUCTS cyclobenzaprine 10 mg tablet 10 mg PO TID PRN (Reason: muscle spasm) Qty: 30 1RF oxycodone-acetaminophen 10-325 mg tablet 1 tab PO Q6H PRN (Reason: pain) 30 Days Qty: 120 0RF leflunomide 20 mg tablet 20 mg PO DAILY Qty: 30 3RF enalapril maleate 10 mg tablet 10 mg PO BID Genotropin MiniQuick 0.4 mg/0.25 mL syringe 0.4 mg SUBCUT DAILY amlodipine 5 mg tablet 5 mg PO QAM glimepiride 2 mg tablet 2 mg PO DAILY PRN (Reason: blood sugar) nortriptyline 25 mg capsule 25 mg PO BEDTIME levothyroxine 88 mcg tablet 88 mcg PO QAM hydrocortisone 10 mg tablet 30 mg PO DAILY metformin 500 mg tablet extended release 24 hr 1,000 mg PO BID rosuvastatin 10 mg tablet 10 mg PO QPM Lantus Solostar U-100 Insulin 100 unit/mL (3 mL) insulin pen 30 - 35 unit SUBCUT DAILY Discharge Orders: Discharge ED (Routine); Ordered 01/18/24 Ordered By: Xiomara Myrick Referrals: Mike Urena MD [Primary Care Provider] - Discharge Diet: Usual diet Discharge Activity: Increase activity as tolerated Patient Instructions: Hyponatremia (ED) Activity Restrictions/Additional Instructions: Thank you for choosing [facility] for your healthcare needs today. Please realize this is an emergency room and that we are providing you with a medical screening exam and this may not be complete and all inclusive of all the testing and or work up that you may need to determine your ailment or severity of your illness. You have been screened and evaluated and felt safe for discharge. Health conditions do change or evolve sometimes and as such it is important that you follow up with your Primary Doctor to be re checked, 3-5 days is a general good time frame for follow up. 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 [employer] Related Data Home Medications Medication Instructions Recorded Confirmed amlodipine 5 mg tablet 5 mg PO QAM 01/18/24 01/18/24 enalapril maleate 10 mg tablet 10 mg PO BID 01/18/24 01/18/24 glimepiride 2 mg tablet 2 mg PO DAILY PRN blood sugar 01/18/24 01/18/24 hydrocortisone 10 mg tablet 30 mg PO DAILY 01/18/24 01/18/24 insulin glargine 100 unit/mL (3 30 - 35 unit SUBCUT DAILY 01/18/24 01/18/24 mL) subcutaneous pen (Lantus Solostar U-100 Insulin) levothyroxine 88 mcg tablet 88 mcg PO QAM 01/18/24 01/18/24 metformin 500 mg tablet,extended 1,000 mg PO BID 01/18/24 01/18/24 release 24 hr nortriptyline 25 mg capsule 25 mg PO BEDTIME 01/18/24 01/18/24 rosuvastatin 10 mg tablet 10 mg PO QPM 01/18/24 01/18/24 somatropin 0.4 mg/0.25 mL 0.4 mg SUBCUT DAILY 01/18/24 01/18/24 subcutaneous syringe (Genotropin MiniQuick) Previous Rx's Medication Instructions Recorded Auto Titrating C-PAP with supplies #1 ea 11/02/22 settings at 6-16 syringe with needle 3 mL 23 x 1 #100 ea 11/22/22 (BD Luer-Maddie Syringe) blood glucose control, low (True #1 ea 01/15/23 Metrix Level 1 solution) blood-glucose meter (True Metrix #1 kit 01/16/23 Air Glucose Meter kit) lancets 33 gauge (OneTouch Delica #100 ea 06/05/23 Plus Lancet) lancets 33 gauge (TRUEplus Lancets) #600 ea 09/10/23 blood sugar diagnostic (True #500 strips 10/05/23 Metrix Glucose Test Strip) prednisone 5 mg tablet 5 mg PO DAILY PRN joint pain flare 10/31/23 #90 tabs testosterone cypionate 200 mg/mL 100 mg (0.5 mL) IM Q10D #4.5 mL 12/10/23 intramuscular oil (Depo-Testosterone) pen needle, diabetic 32 gauge x #100 ea 12/20/23 (BD Kathy 2nd Gen Pen Needle) cyclobenzaprine 10 mg tablet 10 mg PO TID PRN muscle spasm #30 01/01/24 tabs oxycodone-acetaminophen 10 mg-325 1 tab PO Q6H PRN pain 30 days #120 01/07/24 mg tablet tabs leflunomide 20 mg tablet 20 mg PO DAILY #30 tabs 01/08/24 nirmatrelvir 300 mg (150 mg See Rx Instructions PO .COMPLEX 01/18/24 x2)-ritonavir 100 mg tablet,dose #30 ea pack (Paxlovid) Allergies Allergy/AdvReac Type Severity Reaction Status Date / Time No Known Allergies Allergy Verified 01/15/24 09:57
--- NOTE | 2024-01-18 11:47 | CT_ITS ---
WS: [id number] CT HEAD NONCONTRAST HISTORY: Worst headache of life TECHNIQUE: Contiguous axial imaging performed through the brain in 2.5 mm imaging. Bone and soft tiss ue windows. Sagittal and coronal reformats reviewed. All CT scans at [facility] use at least one of these dose optimization techniques: automated exposure control; mA and/or kV adjustment per pa tient size (includes targeted exams where dose is matched to clinical indication); or iterative recon struction. DLP: 969.60 mGy.cm COMPARISON: None available. No acute intracranial hemorrhage, midline shift or mass effect. Very minimal atrophy and small vessel disease. No acute edema. Ventricles: Normal size with no hydrocephalus. No inferior displacement of the cerebellar tonsils. Paranasal sinuses: As visualized are clear. Mastoid air cells: Well pneumatized. Calvarium and scalp: Skull is intact with no soft tissue edema or swelling. CT/CT head wo con* [id number] IMPRESSION: 1. No acute intracranial hemorrhage or edema. 2. Very mild volume loss and small vessel disease.
--- NOTE | 2024-01-18 11:51 | ECG_ITS ---
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 Measurements Intervals [place] Rate: 75 P: 59 MN: 173 QRS: 0 QRSD: 101 T: 50 QT: 364 QTc: 407 Interpretive Statements SINUS RHYTHM No previous ECG available for comparison Electronically Signed On 01-18-2024 13:01:59 CDT by Rickey Tapia M.D. [id number]
[2024-01-18 11:57] LABS: Alanine Aminotransferase 23 U/L (0-41); Alkaline Phosphatase 39 U/L (40-130); Anion Gap 18.8 (5-19); Aspartate Amino Transferase 27 U/L (0-40); Blood Urea Nitrogen 13 mg/dL (8-23); C Reactive Protein 7.8 mg/L (0.0-4.9); Calcium 8.4 mg/dL (8.5-10.5); Carbon Dioxide 21 mmol/L (22-29); Chloride 93 mmol/L (98-107); Creatinine Clr Calc Pharmacy 64.0318; Globulin 2.7 g/dL (1.3-4.6); Glomerular Filtration Rate 74.8 mL/min (90-130); Glucose 288 mg/dL (65-115); Osmolality Calculated 277 mOsm/kg (285-295); Potassium 4.8 mmol/L (3.5-5.1); Sodium 128 mmol/L (136-145); Total Bilirubin 0.4 mg/dL (0.15-1.2); Total Protein 6.7 g/dL (6.6-8.7)
[2024-01-18 12:04] LABS: Procalcitonin 0.16 ng/mL (0-0.5)
[2024-01-18 12:18] LABS: Troponin(5th) Baseline < 6 ng/L (0-15)
[2024-01-18] MEDS: sodium chloride 0.9% 1,000 ML 999 ML IV (12:54)
--- NOTE | 2024-01-18 13:56 | ECG_ITS ---
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 Measurements Intervals [place] Rate: 64 P: 63 MN: 188 QRS: 9 QRSD: 105 T: 57 QT: 393 QTc: 406 Interpretive Statements SINUS RHYTHM Compared to ECG 01/18/2024 12:01:17 No significant changes Electronically Signed On 01-18-2024 20:03:32 CDT by Rickey Tapia M.D. [id number]
[2024-01-18 14:07] LABS: Troponin 5 2HR 7.39 ng/L (0-15); Troponin 5 2HR Delta 1.39001 ABS# (0-10)
[2024-01-18 14:15] LABS: Bilirubin Urine Negative (Negative); Blood Urine Negative (Negative); Glucose Urine UA 2+ (Normal); Ketones Urine Negative (Negative); Leukocyte Esterase Urine Negative (Negative); Nitrate Urine Negative (Negative); Protein Urine Negative (Negative); Urine Appearance Clear (CLEAR); Urine Color Yellow (Yellow); Urobilinogen Urine 0.2 mg/dL (Negative)
[2024-01-18 14:17] LABS: Bacteria Urine None Seen /hpf; Hyaline Casts Urine 0-4 /lpf; RBC Urine 0-2 /hpf (0-2); Squamous Epithelial Cell Urine 0-5 /hpf (0-5); WBC Urine 0-5 /hpf (0-5)
[2024-01-18 14:34] VITALS: BP 120/73; PULSE 73; RESP 18; O2SAT 97
[2024-01-18 14:34] LABS: Adenovirus Not Detected (NOT DETECT); Chlamydia Pneumoniae Not Detected (NOT DETECT); Coronavirus 229E,HKU1,NL63,OC4 Not Detected (NOT DETECT); Human Metapneumovirus Not Detected (NOT DETECT); Human Rhinovirus/Enterovirus Not Detected (NOT DETECT); Influenza A Not Detected (NOT DETECT); Influenza A H1 Not Detected (NOT DETECT); Influenza A H1-2009 Not Detected (NOT DETECT); Influenza A H3 Not Detected (NOT DETECT); Influenza B Not Detected (NOT DETECT); Mycoplasma Pneumoniae Not Detected (NOT DETECT); Parainfluenza Virus Type 1 Not Detected (NOT DETECT); Parainfluenza Virus Type 2 Not Detected (NOT DETECT); Parainfluenza Virus Type 3 Not Detected (NOT DETECT); Parainfluenza Virus Type 4 Not Detected (NOT DETECT); Respiratory Syncytial Virus A Not Detected (NOT DETECT); Respiratory Syncytial Virus B Not Detected (NOT DETECT)
[2024-01-18 14:41] LABS: SARS-COV-2 Detected (NOT DETECT)
[2024-01-18 16:00] VITALS: BP 116/76; PULSE 71; O2SAT 97
[2024-01-18 16:13] VITALS: BP 116/76; PULSE 71; O2SAT 97
== END 2024-01-18 16:13 | disposition home or self-care (01) ==
PROVIDERS: Emergency Provider Emergency Medicine; PCP Family Medicine
DX: U07.1 COVID-19 (principal); R51.9 Headache, unspecified; E87.1 Hypo-osmolality and hyponatremia; Z79.4 Long term (current) use of insulin; Z79.84 Long term (current) use of oral hypoglycemic drugs; E11.9 Type 2 diabetes mellitus without complications; I10 Essential (primary) hypertension; E78.5 Hyperlipidemia, unspecified
CPT/HCPCS: 36415; 70450; 71045; 80053; 81001; 83605; 84145; 84484; 85025; 86140; 87040; 87486; 87581; 87633; 93005; 99285; J7030

== ENCOUNTER → 2024-02-05 11:13 | Outpatient (BNVA) | payer MEDICARE, SELFPAY | PROVIDERS: PCP Family Medicine; Visit Provider Internal Medicine Rheumatology | DX: M06.00 Rheumatoid arthritis without rheumatoid factor, unspecified site (principal); Z79.899 Other long term (current) drug therapy; Z71.85 Encounter for immunization safety counseling; E23.6 Other disorders of pituitary gland | CPT/HCPCS: 99214 ==

== ENCOUNTER 2024-02-28 09:44 | Day surgery (SDC) | payer MEDICARE, SELFPAY ==
[2024-02-28] VITALS (7 sets, daily range): BP systolic 119–146; BP diastolic 74–97; PULSE 72–82; RESP 16–18; TEMP 36.1–36.9; O2SAT 96–98; BMI 24.1
[2024-02-28] MEDS: ketorolac 30 mg/mL INJ IVP (10:21)
[2024-02-28] MEDS: acetaminophen 1,000 MG/100 ML PIGGYBACK 400 MG IV (10:21)
[2024-02-28 10:22] LABS: Glucose Point of Care 160 mg/dL (70-110)
[2024-02-28] MEDS: sodium chloride 0.9% 1,000 ML 30 ML IV (10:22)
--- NOTE | 2024-02-28 10:34 | P.HP_ITS ---
Same Day Surgery H&P Indication for Procedure/HPI DATE OF PROCEDURE: February 28, 2024 CHIEF COMPLAINT/INDICATIONFOR SURGICAL PROCEDURE: Recurrent right carpal tunnel, right wrist Guyon's entrapment, right cubital tunnel syndrome recurrent, right forearm mass PREOP DIAGNOSIS: Recurrent right carpal tunnel, cubital tunnel syndrome, Guyon's entrapment, PLANNED PROCEDURE: Operation Date: 02/28/24 11:20 Proposed Procedures p Carpal Tunnel Release Revision(Right) - Preet [place], DO s Cubital Tunnel Release Revision(Right) - Preet Bettye, DO s Ulnar Nerve Transposition(Right) - Preet Bettye, DO s Guyon Canal Release(Right) - Preet [place], DO s right forearm mass excision(Right) - Preet [place], DO Medications/Allergies* Home Medications Medication Instructions Recorded Confirmed Type amlodipine 5 mg tablet 5 mg PO QAM 01/18/24 02/28/24 History enalapril maleate 10 mg tablet 10 mg PO BID 01/18/24 02/27/24 History hydrocortisone 10 mg tablet 30 mg PO DAILY 01/18/24 02/27/24 History levothyroxine 88 mcg tablet 88 mcg PO QAM 01/18/24 02/27/24 History metformin 500 mg tablet,extended 1,000 mg PO BID 01/18/24 02/27/24 History release 24 hr somatropin 0.4 mg/0.25 mL 0.4 mg SUBCUT DAILY 01/18/24 02/27/24 History subcutaneous syringe (Genotropin MiniQuick) Allergies/Adverse Reactions Allergy/AdvReac Type Severity Reaction Status Date / Time tofacitinib [From Xeljanz] AdvReac Severe ALGY-Anaphy Verified 02/28/24 10:10 laxis Current Medications: Generic Name Dose Route Start Last Admin Trade Name Freq PRN Reason Stop Dose Admin Sodium Chloride 1,000 mls @ 30 mls/hr 02/28/24 10:00 02/28/24 10:22 Sodium Chloride 0.9% IV 02/29/24 09:59 30 mls/hr .Q24H MANDO Administration Pertinent History/Comorbid Conditions* Medical History (Updated 01/26/24 @ 00:01 by MELANIE Akins) SHRUTHI (obstructive sleep apnea) Seronegative rheumatoid arthritis Androgen deficiency 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 High risk medication use Secondary hypothyroidism Type 2 diabetes mellitus, without long-term current use of insulin Erectile dysfunction Essential hypertension Hyperlipidemia Benign tumor of pituitary gland Surgical History (Updated 09/30/20 @ 10:54 by Stephy Clay DO) History of carpal tunnel surgery Bilateral History of left hip replacement H/O elbow surgery Bilateral ulnar release Family History (Updated 09/21/20 @ 11:13 by Mary Ellen David LPN) Father Mother Heart attack Father Breast cancer Mother Social History Smoking and tobacco/nicotine status: never used tobacco/nicotine Second hand smoke exposure: No Alcohol intake: never Substance/Drug Use: never Pertinent Exam Findings alert, oriented x 3, operative site marked and procedure specific exam findings This please refer to detailed orthopedic examination on 01/15/2024: Bilateral Upper Extremity Exam: Normal C-spine ROM, No pain. Negative Spurling's negative Lhermitte's Negative Tinel's @ shoulders, Normal ROM Normal ROM elbow. Positive Tinel's @ cubital tunnel on right Previous cubital incision, well healed, bilaterally Palpable transposition felt in right forearm Firm mobile mass located over right dorsal forearm Intrinsic weakness and atrophy noted Thenar atrophy and weakness noted Positive median nerve compression test, bilaterally Positive Tinel's, bilaterally Positive Phalen's, bilaterally Left elbow deformity noted from previous fracture Recommendations Surgery/Procedure today Other Plans: Plan proceed to the OR today for right carpal tunnel release revision, right wrist guyon's canal release, right cubital tunnel release revision, right ulnar nerve transposition revision and right forearm mass excision.. Patient understands the ins and outs of procedure the risk benefits complication alternatives surgery and through shared decision make elects proceed with surgical intervention. All questions have been answered at this time. Coding Level of Care Code Acute Code for Chg Fwd
--- NOTE | 2024-02-28 10:52 | P.ANESASSM_ITS ---
Pre-Anesthetic Assessment Height/Weight: Height 5 ft 5 in Weight 145 lb Temp Pulse Resp BP Pulse Ox O2 Del Method 97.4 F L 82 18 146/97 97 Room Air 02/28/24 10:11 02/28/24 10:11 02/28/24 10:11 02/28/24 10:11 02/28/24 10:11 02/28/24 10:11 Preop Diagnosis: Recurrent right carpal tunnel, cubital tunnel syndrome, Guyon's entrapment, Operation Date: 02/28/24 11:20 Proposed Procedures p Carpal Tunnel Release Revision(Right) - Preet Mcpherson, DO s Cubital Tunnel Release Revision(Right) - Preet Mcpherson, DO s Ulnar Nerve Transposition(Right) - Preet Mcpherson, DO s Guyon Canal Release(Right) - Preet Mcpherson, DO s right forearm mass excision(Right) - Preet Bettye, DO Was Beta Terence taken within 24 hours: N/A Was Clonidine taken within 24 hours: N/A Last intake: Intake Last Liquid Date 02/27/24 Last Liquid Time 21:00 Last Solid Date 02/27/24 Last Solid Time 21:00 Social No alcohol and No tobacco Exam alert, oriented x 3, clear to auscultation bilaterally and regular rate & rhythm Airway Submandibular: within normal limits Cervical ROM: within normal limits Mallampati: Class III Dentition: partials Anesthetic Plan ASA status: 3 Anesthesia: MAC and Regional (specify below) Other: No prior issues with anesthesia NPO since yesterday History of hypertension on enalapril and amlodipine Hypothyroidism on Synthroid Rheumatoid arthritis, arthritis in cervical region as well with limited neck mobility Insulin-dependent diabetes, AM BS 160 EKG sinus rhythm Plan for MAC anesthetic with peripheral nerve block Medications/Allergies Home Medications Medication Instructions Recorded Confirmed Last Taken Type Auto Titrating C-PAP with supplies #1 ea 11/02/22 02/05/24 Unknown Rx settings at 6-16 syringe with needle 3 mL 23 x 1 #100 ea 11/22/22 02/05/24 Unknown Rx (BD Luer-Maddie Syringe) blood glucose control, low (True #1 ea 01/15/23 02/05/24 Unknown Rx Metrix Level 1 solution) blood-glucose meter (True Metrix #1 kit 01/16/23 02/05/24 Unknown Rx Air Glucose Meter kit) lancets 33 gauge (OneTouch Delica #100 ea 06/05/23 02/05/24 Unknown Rx Plus Lancet) lancets 33 gauge (TRUEplus Lancets) #600 ea 09/10/23 02/05/24 Unknown Rx blood sugar diagnostic (True #500 strips 10/05/23 02/05/24 Unknown Rx Metrix Glucose Test Strip) prednisone 5 mg tablet 5 mg PO DAILY PRN joint pain flare 10/31/23 02/27/24 Unknown Rx #90 tabs testosterone cypionate 200 mg/mL 100 mg (0.5 mL) IM Q10D #4.5 mL 12/10/23 02/27/24 Unknown Rx intramuscular oil (Depo-Testosterone) pen needle, diabetic 32 gauge x #100 ea 12/20/23 02/05/24 Unknown Rx (BD Kathy 2nd Gen Pen Needle) amlodipine 5 mg tablet 5 mg PO QAM 01/18/24 02/28/24 02/28/24 08:00 History enalapril maleate 10 mg tablet 10 mg PO BID 01/18/24 02/27/24 02/27/24 History hydrocortisone 10 mg tablet 30 mg PO DAILY 01/18/24 02/27/24 02/27/24 History levothyroxine 88 mcg tablet 88 mcg PO QAM 01/18/24 02/27/24 02/27/24 History metformin 500 mg tablet,extended 1,000 mg PO BID 01/18/24 02/27/24 02/27/24 History release 24 hr somatropin 0.4 mg/0.25 mL 0.4 mg SUBCUT DAILY 01/18/24 02/27/24 02/27/24 History subcutaneous syringe (Genotropin MiniQuick) insulin glargine 100 unit/mL (3 40 unit (0.4 mL) SUBCUT DAILY #45 01/21/24 02/27/24 02/27/24 Rx mL) subcutaneous pen (Lantus mL Solostar U-100 Insulin) nortriptyline 25 mg capsule 25 mg PO BEDTIME #60 caps 02/04/24 02/27/24 02/26/24 Rx rosuvastatin 10 mg tablet 10 mg PO QPM #60 tabs 02/04/24 02/27/24 02/26/24 Rx leflunomide 20 mg tablet 20 mg PO DAILY #90 tabs 02/05/24 02/27/24 02/27/24 Rx abatacept 125 mg/mL subcutaneous 125 mg SUBCUT Q7D #4 mL 02/06/24 02/27/24 Unknown Rx auto-injector (Orencia ClickJect) oxycodone-acetaminophen 10 mg-325 1 tab PO Q6H PRN pain 30 days #120 02/06/24 02/28/24 02/28/24 08:00 Rx mg tablet tabs glimepiride 2 mg tablet See Rx Instructions .Route 02/17/24 02/27/24 02/27/24 Rx .COMPLEX #50 tabs cyclobenzaprine 10 mg tablet 10 mg PO TID PRN muscle spasm #90 02/25/24 02/27/24 Unknown Rx tabs Allergies Allergy/AdvReac Type Severity Reaction Status Date / Time tofacitinib [From Xeljanz] AdvReac Severe ALGY-Anaphy Verified 02/28/24 10:10 laxis Current Medications Generic Name Dose Route Start Last Admin Trade Name Freq PRN Reason Stop Dose Admin Sodium Chloride 1,000 mls @ 30 mls/hr 02/28/24 10:00 02/28/24 10:22 Sodium Chloride 0.9% IV 02/29/24 09:59 30 mls/hr .Q24H MANDO Administration PFSH Anesthesia Medical History SHRUTHI (obstructive sleep apnea) Seronegative rheumatoid arthritis Androgen deficiency 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 High risk medication use Secondary hypothyroidism Type 2 diabetes mellitus, without long-term current use of insulin Erectile dysfunction Essential hypertension Hyperlipidemia Benign tumor of pituitary gland Surgical History History of carpal tunnel surgery Bilateral History of left hip replacement H/O elbow surgery Bilateral ulnar release Family History Father Heart attack Mother Breast cancer Social History Smoking and tobacco/nicotine status: never used tobacco/nicotine Second hand smoke exposure: No Alcohol intake: never Substance/Drug Use: never Data Anesthesia Cardiac Studies: No Data to Display
[2024-02-28] MEDS: ceFAZolin 2,000 MG in sodium chloride 0.9% (plus) 50 ML 100 MG IV (10:55)
--- NOTE | 2024-02-28 10:55 | ANES.PROC ---
Anesthesia Procedures Procedure/Date: 02/28/24 Nerve Block ^: Nerve Block 1: Main Anesthesia: other (2 mg of Versed given) Time Out Performed: Yes Consent: requested by attending/covering physician and from patient Nerve block location: supraclavicular Anesthesia monitors applied: pulse oximetry, EKG, BP cuff and oxygen Nerve block position: supine Anesthetic Used: ropivicaine 0.5% Amount of anesthesia used (mL): 30 Ultrasound used to: recognize landmarks Nerve Stimulator Used?: Yes Interscalene/Femoral BLK: 4 stimuplex 21 g needle used for position and inplane approach Injection: neg aspiration of heme Patient Tolerated Procedure: well Complications: none Additional Comments: Decadron 4 mg added
--- NOTE | 2024-02-28 13:17 | W.PM.BPON ---
Date of Procedure: 02/28/2024 Surgeon: Preet Wen DO Amusement Park Entertainer(s): None Procedure(s) performed: Right carpal tunnel release revision Right wrist Guyon's canal release (ulnar nerve release at the wrist) Right cubital tunnel release revision Right ulnar nerve transposition revision Right forearm excision mass (1 cm x 0.5 cm x 0.5 cm) Findings of the procedure(s): Patient underwent procedure as planned without issues or complications taken to PACU stable condition Estimated blood loss: 15 mL Specimen(s) removed: Right forearm mass excision sent for pathology (1 cm x 0.5 cm x 0.5 cm Post-operative diagnosis: Recurrent right carpal tunnel syndrome, right wrist Guyon canal entrapment, right cubital tunnel syndrome with transposition recurrent, right forearm mass
--- NOTE | 2024-02-28 13:17 | PM.OP ---
Operative Report Date of procedure: February 28, 2024 Surgeon: Preet Wen DO Procedure: Preoperative diagnosis? Recurrent right carpal tunnel, right wrist Guyon's entrapment, right cubital tunnel syndrome recurrent, right forearm mass Postop Diagnosis: same Procedure done: Right carpal tunnel release revision Right wrist Guyon's canal release (ulnar nerve release at the wrist) Right cubital tunnel release revision Right ulnar nerve transposition revision Right forearm excision mass (1 cm x 0.5 cm x 0.5 cm) Surgeon: Preet Wen DO Estimated blood loss: 15mL Tourniquet? 75 minutes IV fluids: 300mL Complications: None Findings: See operative report narrative Condition: stable Disposition: same day Brief History: Patient's been seen and worked up in the outpatient setting and findings consistent with preoperative diagnosis.? Patient has?with current right Carpal Tunnel Syndrome,Right ulnar entrapment at?guyons?canal, recurrent right cubital tunnel syndrome with previous transposition, right forearm mass. Which has been worked up in the outpatient setting has physical exam findings consistent with this.? Patient's nerve study consistent with this.? Exam findings consistent with preoperative diagnosis.? Patient's failed conservative treatment.? As result through shared decision making agreed to proceed with right carpal tunnel release revision, right wrist guyon's canal release, right cubital tunnel release revision, right ulnar nerve transposition revision and right forearm mass excision. We talked about tx options as nonoperative and operative intervention.? Understands risk benefits complication alternatives surgical nonsurgical treatment options.? Understanding? risks pt agrees to proceed with surgical intervention. Understanding these risks pt agrees to proceed with surgery.? Consent obtained in preoperative holding area.. Procedure: Patient seen evaluate in the preoperative holding area.? Consent was reviewed and signed with patient.? Correct extremity marked.? Patient seen evaluated by anesthesia department once cleared for surgery was then taken back to the operative suite placed in supine position all bony prominences well-padded patient properly secured to bed.? Right upper extremity placed onto armboard.? Nonsterile tourniquet applied Right upper arm.? Patient then underwent anesthesia per the anesthesia department.? Patient's Right upper extremity was then prepped and draped in standard orthopedic fashion.? Final timeout performed.? Patient received appropriate preoperative antibiotics. Esmarch was used exsanguinate the Right upper extremity.? Tourniquet was insufflated to 250 mmHg. First I started off with the right dorsal forearm mass. This is in the proximal aspect of the forearm. I subsequently just made a standard longitudinal incision centering over this palpable mobile mass. This was subsequently sharp scalpel incision through skin switch to Littler dissection scissors. I spread longitudinally and just piercing up through the fascia was the cyst. I subsequently dissected circumferentially around this and there was no consistent stalk communicating to any joint or deeper tissue. This was excised its entirety and sent for pathology this sized 1 cm x 0.5 cm x 0.5 cm this appeared to have the appearance of more of an epidermal inclusion cyst. I subsequently excised this to its entirety sent for pathology thoroughly irrigated the wound bed reapproximated the fascia with a 0 Vicryl stitch 3-0 Vicryl subcutaneously and nylon stitch for skin. I then proceeded distally with the carpal tunnel release revision again canal release. I next proceeded with my release of the ulnar nerve at the wrist.? An extensive laterally based palmar incision that extended proximal past the wrist crease with a Dickson incision was made directly over?Guyon's canal.? At this point in time incision was made between the Pisa form and hamate to follow neurovascular bundle of?Guyon's canal.? sharp scalpel incision was subsequently made through skin and then I switched to Littler dissection scissors.? At this point in time I dissected down over top?guyons?canal release the brevis muscle belly along the hypothenar region to obtain access into?Guyon's canal.? Thick band of fascia was noted proximally just proximal to the wrist crease this was released and made sure there was complete decompression of the ulnar nerve proximally just prior to?Guyon's canal subsequently released?guyon canal and direct visualization with sharp scalpel excision as well as Littler dissection scissors with care utilizing my health education assistant to protect the neurovascular bundle.? At this point in time I continued to perform release of the fascia/the roof of?Guyon's canal all the way to its most distal extent and the nerve was found to be completely free and untethered.? I then in order to perform release of the deep motor branch I then mobilized my dissection around the ulnar nerve and identified the deep motor branch as it courses towards the underneath fascia connected with the hamate.? I then utilized dissection scissors and under direct visualization completed my release carefully of the fascial bands tethering over top of the deep motor branch.? At this point in time the ulnar nerve was completely decompressed through?Guyon's canal and? ulnar nerve had complete laxity with no areas of entrapment or tethering. No masses were noted within the contents of the?guyons?canal.? This completed the ulnar nerve release at the wrist. Next I then subsequently visualized from the ulnar aspect of the carpal tunnel.? Identified the distal extent as well as proximal extent into the antebrachial fascia.? As result approaching the carpal tunnel from the ulnar position just above the hook of the hamate made an incision through thickened Transverse carpal ligament.? Significant scar tissue was noted along the carpal tunnel. It was noted there was significant entrapment of the median nerve.? I then switched to Littler dissection scissors to complete my dissection and release distally with care to protect neurovascular structures distally.? The tendons were healthy within the carpal tunnel.? No masses were noted.? I then carried my dissection proximally utilizing retraction by my health education assistant as well as direct visualization with loupe magnification identify the proximal extent of the carpal tunnel and release this to its entirety as well as identified the median nerve and released the tethering of the antebrachial fascia proximally past the wrist crease into the distal aspect of the forearm with no further evidence of median nerve entrapment.? The median nerve overall showed signs of compression and inflammation irritation but overall appeared healthy.?? Next marked out the landmarks of the Right elbow of the medial epicondyle and olecranon and made a curvilinear incision following the previous incision, following the course of the ulnar nerve at the medial aspect of the elbow.? Sharp scalpel incision was made through skin and subcutaneous tissue.? Next I switched to Littler dissection scissors and spread in plane of the medial antebrachial cutaneous nerve branching which was protected throughout this part of the dissection.? Then I directly came down over the fascia and identified the 2 heads of the FCU fascia and split this Right in the middle and subsequently identified my ulnar nerve distally.? This was then completely released distally under direct visualization and loupe magnification.? Once the nerve was then identified I then subsequently tracked this proximally. At this point in time it was noted that the nerve already had undergone a transposition. This was significantly scarred down over the flexor pronator mass. The nerve was noted to being significantly flattened and small in caliber consistent with significant recurrence of cubital tunnel syndrome/ulnar nerve entrapment at the elbow even after transposition. I subsequently performed slow steady dissection of the ulnar nerve which was adhered to its previous transposition site. I subsequently had to perform a meticulous dissection of the nerve and release of all scar tissue and adhesions circumferentially wrapping around the ulnar nerve. This was followed proximally over the medial epicondyle as well as then as it went into the proximal aspect of the upper arm. I subsequently palpated and release any residual intermuscular septum to make sure this was completely released. At this point in time I completely had released the ulnar nerve to where this was lax and there is no entrapment proximally to distally. This remained transposed. Unfortunately there was no quality tissue for restabilizing of the transposition and patient had no significant subcutaneous tissue and as a result given patient already had scarred down significantly previously the nerve was left alone decompressed to its entirety and plan was to keep patient splinted for 10 to 14 days isolated to allow the nerve to scar and its standard location without any tethering points of entrapment since there is no tissue for tethering and given the already significant scarring did not want to add more scar to the nerve. As result of this completed the revision cubital tunnel release and transposition. ?Next the wound bed was thoroughly irrigated.? Tourniquet was deflated.? Hemostasis was satisfactory.? ?The incision was then closed in standard interrupted mattress fashion.? Dressing was Xeroform 4 x 4's ABD Curlex soft roll and an Hung wrap has a bulky soft dressing and volar and a long-arm posterior splint at 90 degrees.? Patient was then awakened from anesthesia and taken to PACU in stable condition. Disposition: Patient taken to PACU in stable condition recovering well.? Patient will receive appropriate discharge instructions as well as pain medication postoperatively.? We will follow-up with me in the office in 2 weeks.? Patient understands agrees with current plan.? All questions answered.? pt understands if any questions or concerns and contact the office for follow-up appointment..
--- NOTE | 2024-02-28 15:25 | ANE.PACU2 ---
Inpatient post-anesthesia follow up: Airway intact: Yes Vital signs: Temperature 97 F Pulse Rate 76 Respiratory Rate 18 Blood Pressure 126/75 Pulse Oximetry 98 Oxygen Delivery Me thod Room Air Oxygen Flow Rate Fraction of Inspir ed Oxygen Hydration adequate: Yes Nausea and vomiting: No Pain level: 1 Mental status: Baseline
== END 2024-02-28 15:25 | disposition home or self-care (01) ==
PROVIDERS: PCP Family Medicine; Visit Provider Student in an Organized Health Care Education/Training Program
PROC: (CPT 64721; principal; 2024-02-28 11:20)
PROC: (CPT 64718; 2024-02-28 11:20)
PROC: (CPT 25075; 2024-02-28 11:20)
PROC: (CPT 64719; 2024-02-28 11:20)
PROC: (CPT 25075; 2024-02-28 11:20)
DX: G56.01 Carpal tunnel syndrome, right upper limb (principal); G56.21 Lesion of ulnar nerve, right upper limb; L72.0 Epidermal cyst; I10 Essential (primary) hypertension; E03.9 Hypothyroidism, unspecified; M06.9 Rheumatoid arthritis, unspecified; E11.9 Type 2 diabetes mellitus without complications; G47.33 Obstructive sleep apnea (adult) (pediatric); Z79.84 Long term (current) use of oral hypoglycemic drugs; E78.5 Hyperlipidemia, unspecified
CPT/HCPCS: 25075; 64718; 64719; 64721; 36416; 82962; 88304; J0131; J0690; J1100; J1885; J2371; J2405; J2704; J7030

== ENCOUNTER 2024-02-29 09:50 | Outpatient (RCR) | payer MEDICARE, SELFPAY | END 2024-03-27 23:59 | disposition home or self-care (01) | LOC: SOT 09:50 | PROVIDERS: PCP Family Medicine; Visit Provider Student in an Organized Health Care Education/Training Program | DX: G56.01 Carpal tunnel syndrome, right upper limb (principal) | CPT/HCPCS: 97110; 97165; 97530; L3763 ==

== ENCOUNTER 2024-03-10 09:43 | Outpatient (CLI) | payer MEDICARE, SELFPAY ==
[2024-03-10 09:59] LABS: Basophils # 0.1 10^3/uL (0.0-0.1); Basophils % 1.1 %; Eosinophils # 0.3 10^3/uL (0.0-0.8); Eosinophils % 5.8 %; Hematocrit 48.9 % (37-53); Mean Corpuscular HGB Conc 30.3 g/dL (30-55); Mean Corpuscular Hemoglobin 29.2 pg (27-33); Mean Corpuscular Volume 96.4 fl (82-101); Monocytes # 0.4 10^3/uL (0.2-0.9); Monocytes % 8.8 %; Neutrophils # 2.85 10^3/uL (1.8-7.7); Neutrophils % 63.1 %; Nucleated Red Blood Cells % 0 %; Platelet Count 191 10^3/cmm (157-399); Red Blood Count 5.07 10^6/uL (3.85-5.65); Red Cell Distribution Width 14.2 % (12.1-15.1); White Blood Count 4.52 10^3/uL (3.29-11.43)
[2024-03-10 10:16] LABS: Estmated Average Glucose 146; Hemoglobin A1C 6.7 % (4.0-6.0)
[2024-03-10 10:26] LABS: Creatinine Urine, Random 37 mg/dL (39-259); Microalbum Creatinine Ratio Ur 27 mg/dL (0-20); Microalbumin Random Urine 1 ug/dL (0-20)
[2024-03-10 10:31] LABS: Alanine Aminotransferase 27 U/L (0-41); Albumin Level 4.4 g/dL (3.5-5.2); Alkaline Phosphatase 37 U/L (40-130); Anion Gap 14.4 (5-19); Aspartate Amino Transferase 23 U/L (0-40); Blood Urea Nitrogen 18 mg/dL (8-23); Calcium 8.6 mg/dL (8.5-10.5); Carbon Dioxide 28 mmol/L (22-29); Chloride 100 mmol/L (98-107); Chol HDL Ratio 2.88 mg/dL (1.0-5.00); Cholesterol 124 mg/dL (0-200); Globulin 2.2 g/dL (1.3-4.6); Glomerular Filtration Rate 96.7 mL/min (90-130); Glucose 120 mg/dL (65-115); HDL Cholesterol 43 mg/dL (60-100); LDL Cholesterol Calculated 65 mg/dL (50-129); LDL HDL Ratio 1.51 RATIO (0.00-3.22); Osmolality Calculated 289 mOsm/kg (285-295); Potassium 4.4 mmol/L (3.5-5.1); Sodium 138 mmol/L (136-145); Total Bilirubin 0.7 mg/dL (0.15-1.2); Total Protein 6.6 g/dL (6.6-8.7); Triglycerides 79 mg/dL (0-150)
[2024-03-10 10:37] LABS: Free T4 Free Thyroxine 1.29 ng/dL (0.82-1.77); Testosterone Total 550.4 ng/dL (193-740)
== END 2024-03-10 09:44 | disposition home or self-care (01) ==
LOC: LAB 09:43
PROVIDERS: PCP Family Medicine; Visit Provider Internal Medicine
DX: E11.9 Type 2 diabetes mellitus without complications (principal); E03.8 Other specified hypothyroidism
CPT/HCPCS: 36415; 80053; 80061; 82044; 83036; 84403; 84439; 85025

== ENCOUNTER → 2024-03-12 10:06 | Outpatient (BNVA) | payer MEDICARE, SELFPAY | PROVIDERS: PCP Family Medicine; Visit Provider Internal Medicine | DX: E11.42 Type 2 diabetes mellitus with diabetic polyneuropathy (principal); E27.49 Other adrenocortical insufficiency; E03.8 Other specified hypothyroidism; E23.6 Other disorders of pituitary gland; E23.0 Hypopituitarism; M81.0 Age-related osteoporosis without current pathological fracture; E78.5 Hyperlipidemia, unspecified; D35.2 Benign neoplasm of pituitary gland; Z79.4 Long term (current) use of insulin; Z79.84 Long term (current) use of oral hypoglycemic drugs; Z79.890 Hormone replacement therapy | CPT/HCPCS: 36415; 82607; 84305; 99214 ==

== ENCOUNTER → 2024-03-14 09:49 | Outpatient (BNVA) | payer MEDICARE, SELFPAY | PROVIDERS: PCP Family Medicine; Visit Provider Physician Assistant | DX: Z98.890 Other specified postprocedural states (principal) | CPT/HCPCS: 99024 ==

== ENCOUNTER → 2024-04-18 09:03 | Outpatient (BNVA) | payer MEDICARE, SELFPAY | PROVIDERS: PCP Family Medicine; Visit Provider Physician Assistant | DX: Z98.890 Other specified postprocedural states (principal) | CPT/HCPCS: 99024 ==

== ENCOUNTER 2024-05-01 08:58 | Outpatient (RCR) | payer MEDICARE, SELFPAY | END 2024-05-27 23:59 | disposition home or self-care (01) | LOC: SOT 08:58 | PROVIDERS: Visit Provider Physician Assistant | DX: G56.01 Carpal tunnel syndrome, right upper limb (principal); G56.21 Lesion of ulnar nerve, right upper limb | CPT/HCPCS: 97022; 97035; 97110; 97165; 97530 ==

== ENCOUNTER 2024-06-02 09:12 | Outpatient (CLI) | payer MEDICARE, SELFPAY ==
[2024-06-02 09:53] LABS: Estmated Average Glucose 143; Hemoglobin A1C 6.6 % (4.0-6.0)
[2024-06-02 09:56] LABS: Creatinine Urine, Random 22 mg/dL (39-259); Microalbum Creatinine Ratio Ur 45 mg/dL (0-20); Microalbumin Random Urine 1 ug/dL (0-20)
[2024-06-02 10:07] LABS: Alanine Aminotransferase 19 U/L (0-41); Albumin Level 4.4 g/dL (3.5-5.2); Alkaline Phosphatase 47 U/L (40-130); Anion Gap 15.2 (5-19); Aspartate Amino Transferase 20 U/L (0-40); Blood Urea Nitrogen 14 mg/dL (8-23); Calcium 8.9 mg/dL (8.5-10.5); Carbon Dioxide 26 mmol/L (22-29); Chloride 100 mmol/L (98-107); Cholesterol 228 mg/dL (0-200); Free T4 Free Thyroxine 1.07 ng/dL (0.82-1.77); Glomerular Filtration Rate 84.2 mL/min (90-130); Glucose 127 mg/dL (65-115); HDL Cholesterol 40 mg/dL (60-100); LDL Cholesterol Calculated 152 mg/dL (50-129); Osmolality Calculated 286 mOsm/kg (285-295); Potassium 4.2 mmol/L (3.5-5.1); Sodium 137 mmol/L (136-145); Testosterone Total 768.4 ng/dL (193-740); Total Bilirubin 0.6 mg/dL (0.15-1.2); Total Protein 6.4 g/dL (6.6-8.7); Triglycerides 182 mg/dL (0-150)
[2024-06-02 10:39] LABS: Basophils % 0.6 %; Eosinophils # 0.2 10^3/uL (0.0-0.8); Eosinophils % 3.4 %; Hematocrit 45.6 % (37-53); Lymphocytes # 1.3 10^3/uL (0.8-4.8); Mean Corpuscular HGB Conc 33.8 g/dL (30-55); Mean Corpuscular Hemoglobin 28.7 pg (27-33); Mean Corpuscular Volume 84.9 fl (82-101); Monocytes # 0.6 10^3/uL (0.2-0.9); Monocytes % 12.1 %; Neutrophils # 2.58 10^3/uL (1.8-7.7); Neutrophils % 55.7 %; Nucleated Red Blood Cells % 0 %; Platelet Count 188 10^3/cmm (157-399); Red Blood Count 5.37 10^6/uL (3.85-5.65); Red Cell Distribution Width 14.1 % (12.1-15.1); White Blood Count 4.64 10^3/uL (3.29-11.43)
== END 2024-06-02 09:13 | disposition home or self-care (01) ==
LOC: LAB 09:13
PROVIDERS: PCP Family Medicine; Visit Provider Internal Medicine
DX: E23.0 Hypopituitarism (principal); Z79.899 Other long term (current) drug therapy; E03.8 Other specified hypothyroidism; E11.9 Type 2 diabetes mellitus without complications; E27.49 Other adrenocortical insufficiency; D35.2 Benign neoplasm of pituitary gland; M81.0 Age-related osteoporosis without current pathological fracture; E23.6 Other disorders of pituitary gland; E78.5 Hyperlipidemia, unspecified; G62.9 Polyneuropathy, unspecified
CPT/HCPCS: 36415; 80053; 80061; 82044; 83036; 84403; 84439; 84443; 85025; 99215

== ENCOUNTER → 2024-06-13 09:54 | Outpatient (BNVA) | payer MEDICARE, SELFPAY | PROVIDERS: PCP Family Medicine; Visit Provider Student in an Organized Health Care Education/Training Program | DX: M67.431 Ganglion, right wrist (principal); M19.041 Primary osteoarthritis, right hand; M19.031 Primary osteoarthritis, right wrist; Z98.890 Other specified postprocedural states | CPT/HCPCS: 20605; 73110; 99214 ==

== ENCOUNTER → 2024-06-17 11:14 | Outpatient (BNVA) | payer MEDICARE, SELFPAY | PROVIDERS: PCP Family Medicine; Visit Provider Internal Medicine Rheumatology | DX: M06.00 Rheumatoid arthritis without rheumatoid factor, unspecified site (principal); Z79.899 Other long term (current) drug therapy; Z71.85 Encounter for immunization safety counseling; E23.6 Other disorders of pituitary gland | CPT/HCPCS: 99214 ==

== ENCOUNTER → 2024-07-09 10:17 | Outpatient (BNVA) | payer MEDICARE, SELFPAY | PROVIDERS: PCP Family Medicine; Visit Provider Podiatrist Foot & Ankle Surgery | DX: E11.42 Type 2 diabetes mellitus with diabetic polyneuropathy (principal); B35.1 Tinea unguium; Q82.8 Other specified congenital malformations of skin; G62.9 Polyneuropathy, unspecified; I73.9 Peripheral vascular disease, unspecified; Z79.4 Long term (current) use of insulin; Z79.84 Long term (current) use of oral hypoglycemic drugs | CPT/HCPCS: 11056; 11721; 99203 ==

== ENCOUNTER → 2024-08-20 10:52 | Outpatient (BNVA) | payer MEDICARE, SELFPAY | PROVIDERS: PCP Family Medicine; Visit Provider Podiatrist Foot & Ankle Surgery | DX: E11.42 Type 2 diabetes mellitus with diabetic polyneuropathy (principal); B35.1 Tinea unguium; Q82.8 Other specified congenital malformations of skin; G62.9 Polyneuropathy, unspecified; I73.9 Peripheral vascular disease, unspecified; Z79.84 Long term (current) use of oral hypoglycemic drugs; Z79.4 Long term (current) use of insulin | CPT/HCPCS: 11056; 11721 ==

== ENCOUNTER → 2024-09-10 10:44 | Outpatient (BNVA) | payer MEDICARE, SELFPAY | PROVIDERS: PCP Family Medicine; Visit Provider Student in an Organized Health Care Education/Training Program | DX: Z98.890 Other specified postprocedural states (principal); M06.9 Rheumatoid arthritis, unspecified; E11.9 Type 2 diabetes mellitus without complications | CPT/HCPCS: 99213 ==

== ENCOUNTER → 2024-10-08 11:04 | Outpatient (BNVA) | payer MEDICARE, SELFPAY | PROVIDERS: PCP Family Medicine; Visit Provider Internal Medicine Rheumatology | DX: M06.00 Rheumatoid arthritis without rheumatoid factor, unspecified site (principal); Z79.899 Other long term (current) drug therapy; Z71.85 Encounter for immunization safety counseling; E23.6 Other disorders of pituitary gland | CPT/HCPCS: 36415; 80076; 82565; 85025; 85651; 86140; 99214 ==

== ENCOUNTER 2024-10-23 08:56 | Oncology outpatient (recurring) (ONCR) | payer MEDICARE, SELFPAY ==
--- NOTE | 2024-10-23 10:47 | N.ONRAD NP_ITS ---
Radiation Oncology New Patient Visit Patient: Vamshi Yancey MR#: [id number] : 1955> Age: 69> Sex: Male> Dictated by: Moisés Cuba DO/MARIBEL/WILEY Date of Service: 10/23/2024 Referring Physician(s) : Dr. Corey Diagnosis: pituatary apopexy, Diagnosed 10/23/2024 (active) and M05.69 - rheumatoid arthritis of multiple sites with involvement of other organs and systems, Diagnosed 10/23/2024 (active), RA, SERONEGTIVE, ORENCIA HELPFUL, SIG ULAR DEVIATION DEFORMITY R>LDECREASE GRIPRT 5TH FINGER, LOSS OF FINE MOTOR SKILLS RT HAND SINCE FEB 2024 SURGERY. STAGE: N/A ICD-10: M05.69 Radiotherapy to date: Summary > No prior radiation therapy. Chief Complaint / History of Present Illness: I have severe RA of the upper extremities. This is a pleasant 69-year-old male with 10+ year diagnosis of progressive rheumatoid arthritis that is seronegative. He also has PMH of ruptured pituitary adenoma, apoplexy, hypopituitary is him, osteoporosis, and hormone replacement by endocrinology Orencia has helped over the last few months. Patient is a former smoker of 30 pack years quitting some 40 years ago. He has failed on Humira, Enbrel, Kevzara, & Xeljanz. Presently on Orencia, Leflunomide, and Prednisone Current Medications: abatacept (Orencia ClickJect) 125 mg SUBCUT Q7D, amlodipine 5 mg PO QAM, blood glucose control, low (True Metrix Level 1 solution) USE DIRECTED WITH GLUCOSE METER, blood sugar diagnostic (True Metrix Glucose Test Strip) CHECK BLOOD SUGAR ONE TO TWO TIMES DAILY, blood-glucose meter (True Metrix Air Glucose Meter kit) USE DIRECTED, celecoxib 200 mg PO Q12H PRN, cyclobenzaprine TAKE 1 TABLET BY MOUTH THREE TIMES DAILY NEEDED FOR MUSCLE SPASMS, enalapril maleate 20 mg PO BID, fluorouracil 5% (Efudex) 1 applic topical BID 4 weeks, glimepiride TAKE 1 TABLET BY MOUTH EVERY DAY, hydrocortisone 30 mg (3 x 10 mg) PO DAILY, insulin glargine (Lantus Solostar U-100 Insulin) 40 units (0.4 mL) SUBCUT DAILY, lancets (APR Energyuch Delica Plus Lancet) TO USE TO CHECK BLOOD SUGAR ONCE DAILY 90 DAY SUPPLY, lancets (TRUEplus Lancets) TEST BLOOD SUGAR DIRECTED, leflunomide 20 mg PO DAILY, levothyroxine TAKE 1 TABLET BY MOUTH EVERY DAY, metformin ER TAKE 2 TABLETS BY MOUTH TWICE A DAY, nortriptyline 25 mg PO BEDTIME, oxycodone-acetaminophen 10-325 mg 1 tab PO Q6H PRN 30 days, pen needle, diabetic FOR USE WITH INSULIN PRODUCTS, prednisone 5 mg PO DAILY PRN, rosuvastatin 10 mg PO QPM, syringe with needle (BD Luer-Maddie Syringe) USE DIRECTED, testosterone cypionate (Depo-Testosterone) 100 mg (0.5 mL) IM Q8D 6 months Allergies: tofacitinib (From Sydpavel) Adverse Reaction (Severe, Verified 10/08/24 11:38) ALGY-Anaphylaxis Medical History: SHRUTHI (obstructive sleep apnea), Seronegative rheumatoid arthritis, Androgen deficiency, Growth hormone deficiency, Central hypogonadism, Pituitary apoplexy, High risk medication use, Secondary hypothyroidism, Type 2 diabetes mellitus, without long-term current use of insulin, Erectile dysfunction, Essential hypertension, Hyperlipidemia, Benign tumor of pituitary gland. No history of collagen vascular disease. No previous radiation therapy. NO SLE Surgical History: BL CTR, LT THR, BL Ulnar Release, RT Elbow surgery History of carpal tunnel surgery-Bilateral History of left hip replacement H/O RT elbow surgery Bilateral ulnar release Family History: Father - Heart attack Mother - Breast cancer Social History: Smoking and tobacco/nicotine status: former use of tobacco/nicotine 30pysh quitting 40 years ago Second hand smoke exposure: No Alcohol intake: never Substance/Drug Use: never Marital status: Current Complaints / Review of Systems: As Above Vital Signs: Performed on 10/23/2024 9:10 AM BMI - 23.43 kg/m2 (high), Height - 65 in, Weight - 140.8 lbs, Temperature - 97.7 f, Pulse - 84 /min, Respiration - 17 /min, O2 Sat - 97 %, Pain - 8, Fatigue - 0 and BP - 150/ 84 mm(hg)(high/). Physical Exam: AAO x3 Skin thinning over hands, BL Ulnar deviation R. Cardiology Physician Assistant strength decrease R>L.Abd soft non tender, antalgic gait Performance Status: KPS 80 Pathology: Primary, pituatary apopexy, Diagnosed 10/23/2024 (active) and Primary, m05.69 - rheumatoid arthritis of multiple sites with involvement of other organs and systems, Diagnosed 10/23/2024 (active) . Lab: Imaging: See HPI Impression: pituatary apopexy, Diagnosed 10/23/2024 (active) and M05.69 - rheumatoid arthritis of multiple sites with involvement of other organs and systems, Diagnosed 10/23/2024 (active), RA, SERONEGTIVE, ORENCIA HELPFUL, SIG ULAR DEVIATION DEFORMITY R>LDECREASE GRIPRT 5TH FINGER, LOSS OF FINE MOTOR SKILLS RT HAND SINCE FEB 2024 SURGERY. STAGE: N/A ICD-10: M05.69 Plan: Options regarding LDRT for RA were discussed. Limited data from small volume studies in [place] were discussed. Questions answered. Side effects discussed We would plan 6 Hunt in 0.5 Hunt fractions (12). Family is going home to further discuss the treatment. Right hand would be from ulnar styloid distally and left at the wrist distally Signed by: 10/23/2024 10:45:26 AM <<Signature on File>> Time spent with patient/: 65 minutes CPT Code: CPT Code:
== END 2024-10-25 23:59 | disposition home or self-care (01) ==
LOC: ONCMED 08:57
PROVIDERS: PCP Family Medicine; Visit Provider Radiology Radiation Oncology
DX: M05.69 Rheumatoid arthritis of multiple sites with involvement of other organs and systems (principal); Z79.899 Other long term (current) drug therapy; Z87.891 Personal history of nicotine dependence
CPT/HCPCS: 99205

== ENCOUNTER 2024-11-13 10:19 | Oncology outpatient (recurring) (ONCR) | payer MEDICARE, SELFPAY ==
--- NOTE | 2024-11-13 12:49 | N.ONRD TS_ITS ---
Radiation Oncology Treatment Summary Patient: Vamshi Yancey MR#: [id number] : 1955 Age: 69 Sex: Male Dictated by: Dr. Buddy Rosa Date of Service: 11/13/2024 Referring Physician(s) : Diagnosis: pituatary apopexy, Diagnosed 10/23/2024 (Active) M05.69 - Rheumatoid arthritis of multiple sites with involvement of other organs and systems, Diagnosed 10/23/2024 (Active) Radiotherapy to Date: Course: [facility] 2024, Treatment Site: Rt [id number], Ref. ID: [id number], Energy: 6X, Dose/Fx (cGy): 50, #Fx: 6 / 6, nDose Correction (cGy): 0, Total Dose Delivered (cGy): 300, Start Date: 11/05/2024, End Date: 11/13/2024, Elapsed Days: 8 Course: [facility] 2024, Treatment Site: Lt [id number], Ref. ID: [id number], Energy: 6X, Dose/Fx (cGy): 50, #Fx: 6 / 6, Dose Correction (cGy): 0, Total Dose Delivered (cGy): 300, Start Date: 11/05/2024, End Date: 11/13/2024, Elapsed Days: 8 Clinical Summary: The patient tolerated RT well. He had bilateral knee pain which was his next most bothersome source of pain. He wanted knee treatment too. He underwent simulation for low dose treatment to bilateral knees. Plan: End of treatment today. Add topical 1 % diclofenac gel to joints in hands and knees. Begin bilateral knee treatment. Signed by: Dr. Buddy Rosa>11/13/2024 12:47:21 PM <<Signature on File>>
== END 2024-11-24 23:59 | disposition home or self-care (01) ==
PROVIDERS: PCP Family Medicine; Visit Provider Radiology Radiation Oncology
DX: M05.69 Rheumatoid arthritis of multiple sites with involvement of other organs and systems (principal); Z79.899 Other long term (current) drug therapy
CPT/HCPCS: 77280; 77290; 77295; 77300; 77307; 77334; 77336; 99024

== ENCOUNTER 2024-12-02 07:36 | Outpatient (CLI) | payer MEDICARE, SELFPAY ==
[2024-12-02 08:45] LABS: Hematocrit 46.8 % (37-53); Hemoglobin 15.60 g/dL (11.27-16.99); Mean Corpuscular HGB Conc 33.3 g/dL (30-55); Mean Corpuscular Hemoglobin 29.3 pg (27-33); Mean Corpuscular Volume 87.8 fl (82-101); Nucleated Red Blood Cells % 0 %; Platelet Count 177 10^3/cmm (157-399); Red Blood Count 5.33 10^6/uL (3.85-5.65); White Blood Count 4.80 10^3/uL (3.29-11.43)
[2024-12-02 08:59] LABS: Estmated Average Glucose 160; Hemoglobin A1C 7.2 % (4.0-6.0)
[2024-12-02 09:10] LABS: Creatinine Urine, Random 20 mg/dL (39-259)
[2024-12-02 09:12] LABS: Microalbum Creatinine Ratio Ur 50 mg/dL (0-20)
[2024-12-02 09:18] LABS: Alanine Aminotransferase 21 U/L (0-41); Albumin Level 4.5 g/dL (3.5-5.2); Alkaline Phosphatase 42 U/L (40-130); Anion Gap 16.0 (5-19); Aspartate Amino Transferase 23 U/L (0-40); Blood Urea Nitrogen 11 mg/dL (8-23); Calcium 9.0 mg/dL (8.5-10.5); Carbon Dioxide 29 mmol/L (22-29); Chloride 97 mmol/L (98-107); Cholesterol 133 mg/dL (0-200); Free T4 Free Thyroxine 1.17 ng/dL (0.82-1.77); Globulin 2.3 g/dL (1.3-4.6); Glucose 125 mg/dL (65-115); HDL Cholesterol 38 mg/dL (60-100); Osmolality Calculated 287 mOsm/kg (285-295); Potassium 4.0 mmol/L (3.5-5.1); Sodium 138 mmol/L (136-145); Thyroid Stimulating Hormone 1.10 uIU/mL (0.27-4.20); Total Protein 6.8 g/dL (6.6-8.7); Triglycerides 173 mg/dL (0-150)
== END 2024-12-02 07:37 | disposition home or self-care (01) ==
PROVIDERS: PCP Family Medicine; Visit Provider Internal Medicine
DX: E11.9 Type 2 diabetes mellitus without complications (principal); E03.8 Other specified hypothyroidism; M81.0 Age-related osteoporosis without current pathological fracture; E23.0 Hypopituitarism; D35.2 Benign neoplasm of pituitary gland; Z79.899 Other long term (current) drug therapy
CPT/HCPCS: 36415; 80053; 80061; 82044; 83036; 84305; 84403; 84439; 84443; 85025

== ENCOUNTER 2024-12-03 10:19 | Oncology outpatient (recurring) (ONCR) | payer MEDICARE, SELFPAY ==
--- NOTE | 2024-12-02 09:28 | ONCRAD TMN_ITS ---
Radiation Oncology Weekly Treatment Management Patient: Vamshi Yancey MR#: [id number] : 1955 Attending Physician: Dr. Buddy Rosa Date of Service: 12/02/2024 Referring Physician(s) : Diagnosis: juan espinosa, Diagnosed 10/23/2024 (Active) M05.69 - Rheumatoid arthritis of multiple sites with involvement of other organs and systems, Diagnosed 10/23/2024 (Active) Radiotherapy to date: Course: Knees 2024, Treatment Site: [facility] [id number], Ref. ID: [id number], Energy: 6X, Dose/Fx (cGy): 50, #Fx: 5 / 6, Dose Correction (cGy): 0, Total Dose Delivered (cGy): 250, Start Date: 11/25/2024, Elapsed Days: 7 Course: Knees 2024, Treatment Site: Lt [id number], Ref. ID: [id number], Energy: 6X, Dose/Fx (cGy): 50, #Fx: 5 / 6, Dose Correction (cGy): 0, Total Dose Delivered (cGy): 250, Start Date: 11/25/2024, Elapsed Days: 7 Reason for visit: The patient is being seen today as part of their regularly scheduled weekly on treatment visits to assess for acute toxicities from radiotherapy. Review of Systems: Pain in hands and knees not better. Rainy weather now present makes pain worse. 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 Using oxycodone for pain. Using stool softeners. Topical diclofenac in the past did not do much for him. Vital Signs: Performed on 12/02/2024 9:04 AM BMI - 23.797 kg/m2 (high), Height - 65 in, Weight - 143 lbs, Temperature - 98.2 f, Pulse - 83 /min, Respiration - 17 /min, O2 Sat - 95 % (low), Pain - 7, Fatigue - 0 and BP - 158/ 68 mm(hg)(high/). Physical Exam: omitted Imaging: Radiation therapy imaging related to accurate target localization (i.e. KV, MV and CBCT) was reviewed. Appropriate changes, if any, were made to ensure treatment accuracy. Plan: Good tolerance of treatment. Will complete treatment tomorrow. Signed by: Dr. Buddy Rosa 12/02/2024 9:26:53 AM
--- NOTE | 2024-12-03 15:54 | N.ONRD TS_ITS ---
Radiation Oncology Treatment Summary Patient: Marcel MR#: [id number] : 1955> Age: 69> Sex: Male Dictated by: Dr. Buddy Rosa Date of Service: 12/03/2024 Referring Physician(s) : Diagnosis: pituatary apopexy, Diagnosed 10/23/2024 (Active) M05.69 - Rheumatoid arthritis of multiple sites with involvement of other organs and systems, Diagnosed 10/23/2024 (Active) Radiotherapy to Date: Course: [facility] 2024, Treatment Site: Rt [id number], Ref. ID: [id number], Energy: 6X, Dose/Fx (cGy): 50, #Fx: 6 / 6, Dose Correction (cGy): 0, Total Dose Delivered (cGy): 300, Start Date: 11/05/2024, End Date: 11/13/2024, Elapsed Days: 8 Course: [facility] 2024, Treatment Site: [id number], Ref. ID: [id number], Energy: 6X, Dose/Fx (cGy): 50, #Fx: 6 / 6, Dose Correction (cGy): 0, Total Dose Delivered (cGy): 300, Start Date: 11/05/2024, End Date: 11/13/2024, Elapsed Days: 8 Course: Knees 2024, [id number] Ref. ID: [id number], Energy: 6X, Dose/Fx (cGy): 50, #Fx: 6 / 6, Dose Correction (cGy): 0, Total Dose Delivered (cGy): 300, Start Date: 11/25/2024, End Date: 12/03/2024, Elapsed Days: 8 Course: Knees 2024, [id number], Ref. ID: [id number], Energy: 6X, Dose/Fx (cGy): 50, #Fx: 6 / 6, Dose Correction (cGy): 0, Total Dose Delivered (cGy): 300, Start Date: 11/25/2024, End Date: 12/03/2024, Elapsed Days: 8 Clinical Summary: The patient tolerated RT well. Plan: End of treatment today. Follow up in one month here or by phone call visit. Signed by: Dr. Buddy Rosa>12/03/2024 3:53:33 PM <<Signature on File>>
== END 2024-12-25 23:59 | disposition home or self-care (01) ==
PROVIDERS: PCP Family Medicine; Visit Provider Radiology Radiation Oncology
DX: M05.69 Rheumatoid arthritis of multiple sites with involvement of other organs and systems (principal); Z79.899 Other long term (current) drug therapy
CPT/HCPCS: 77336; 77387; 77412; 99024

== ENCOUNTER → 2024-12-05 10:26 | Outpatient (BNVA) | payer MEDICARE, SELFPAY | PROVIDERS: PCP Family Medicine; Visit Provider Internal Medicine | DX: E23.6 Other disorders of pituitary gland (principal); G62.9 Polyneuropathy, unspecified; D35.2 Benign neoplasm of pituitary gland; M81.0 Age-related osteoporosis without current pathological fracture; E27.49 Other adrenocortical insufficiency; E11.9 Type 2 diabetes mellitus without complications; E78.5 Hyperlipidemia, unspecified; E03.8 Other specified hypothyroidism; Z79.899 Other long term (current) drug therapy; E23.0 Hypopituitarism; Z79.4 Long term (current) use of insulin; Z79.84 Long term (current) use of oral hypoglycemic drugs | CPT/HCPCS: 99214 ==

== ENCOUNTER 2025-01-02 09:52 | Outpatient (CLI) | payer MEDICARE, SELFPAY | END 2025-01-02 09:53 | disposition home or self-care (01) | LOC: LAB 09:55 | PROVIDERS: PCP Family Medicine; Visit Provider Internal Medicine | DX: G62.9 Polyneuropathy, unspecified (principal); E23.6 Other disorders of pituitary gland; D35.2 Benign neoplasm of pituitary gland; M81.0 Age-related osteoporosis without current pathological fracture; E27.49 Other adrenocortical insufficiency; E11.9 Type 2 diabetes mellitus without complications; E03.8 Other specified hypothyroidism; E78.5 Hyperlipidemia, unspecified | CPT/HCPCS: 36415; 84403 ==

== ENCOUNTER 2025-01-05 09:57 | Oncology outpatient (recurring) (ONCR) | payer MEDICARE, SELFPAY ==
--- NOTE | 2025-01-05 11:59 | ONCRAD EPV_ITS ---
Radiation Oncology Established Patient Visit Patient: Vamshi Yancey [id number] : 1955 Age: 69 Sex: Male Dictated by: Dr. Vamshi [place] Date of Service: 01/05/2025 Referring Physician(s) : Diagnosis: pituatary apopexy, Diagnosed 10/23/2024 (Active) M05.69 - Rheumatoid arthritis of multiple sites with involvement of other organs and systems, Diagnosed 10/23/2024 (Active) Radiotherapy to Date: Course: Hands 2024, Treatment Site: Rt [id number], Ref. ID: [id number], Energy: 6X, Dose/Fx (cGy): 50, #Fx: 6 / 6, Dose Correction (cGy): 0, Total Dose Delivered (cGy): 300, Start Date: 11/05/2024, End Date: 11/13/2024, Elapsed Days: 8 Course: Hands 2024, Treatment Site: Lt [id number], Ref. ID: [id number], Energy: 6X, Dose/Fx (cGy): 50, #Fx: 6 / 6, Dose Correction (cGy): 0, Total Dose Delivered (cGy): 300, Start Date: 11/05/2024, End Date: 11/13/2024, Elapsed Days: 8 Course: Knees 2024, Treatment Site: Lt [id number], Ref. ID: [id number], Energy: 6X, Dose/Fx (cGy): 50, #Fx: 6 / 6, Dose Correction (cGy): 0, Total Dose Delivered (cGy): 300, Start Date: 11/25/2024, End Date: 12/03/2024, Elapsed Days: 8 Course: Knees 2024, Treatment Site: Lt [id number], Ref. ID: [id number], Energy: 6X, Dose/Fx (cGy): 50, #Fx: 6 / 6, Dose Correction (cGy): 0, Total Dose Delivered (cGy): 300, Start Date: 11/25/2024, End Date: 12/03/2024, Elapsed Days: 8 Current History: This is a pleasant 69-year-old male who underwent 5 fractions of treatment to bilateral hands and bilateral knees completing this on 12/03/2024. He received 300 cGy in 5 fractions. He tolerated treatment well. He comes back 1 month for evaluation. He denies any significant improvement. Current Medications: abatacept (Orencia ClickJect) 125 mg SUBCUT Q7D amlodipine 5 mg PO QAM blood glucose control, low (True Metrix Level 1 solution) USE DIRECTED WITH GLUCOSE METER blood sugar diagnostic (True Metrix Glucose Test Strip) CHECK BLOOD SUGAR ONE TO TWO TIMES DAILY blood-glucose meter (True Metrix Air Glucose Meter kit) USE DIRECTED celecoxib 200 mg PO Q12H PRN cyclobenzaprine TAKE 1 TABLET BY MOUTH THREE TIMES DAILY NEEDED FOR MUSCLE SPASMS enalapril maleate 20 mg PO BID fluorouracil 5% (Efudex) 1 applic topical BID 4 weeks glimepiride TAKE 1 TABLET BY MOUTH EVERY DAY hydrocortisone 30 mg (3 x 10 mg) PO DAILY insulin glargine (Lantus Solostar U-100 Insulin) 40 units (0.4 mL) SUBCUT DAILY lancets (SLIC games Delica Plus Lancet) TO USE TO CHECK BLOOD SUGAR ONCE DAILY 90 DAY SUPPLY lancets (TRUEplus Lancets) TEST BLOOD SUGAR DIRECTED leflunomide 20 mg PO DAILY levothyroxine TAKE 1 TABLET BY MOUTH EVERY DAY metformin ER TAKE 2 TABLETS BY MOUTH TWICE DAILY nortriptyline 25 mg PO BEDTIME oxycodone-acetaminophen 10-325 mg 1 tab PO Q6H PRN 30 days pen needle, diabetic FOR USE WITH INSULIN PRODUCTS prednisone 5 mg PO DAILY PRN rosuvastatin 10 mg PO QPM syringe with needle (BD Luer-Maddie Syringe) USE DIRECTED testosterone cypionate 100 mg (0.5 mL) IM Q8D 2 months Allergies: tofacitinib (From Xeljanz) Adverse Reaction (Severe, Verified 12/04/24 14:21) ALGY-Anaphylaxis Current Complaints / Review of Systems: . Vital Signs: Performed on 01/05/2025 10:04 AM BMI - 24.329 kg/m2 (high), Height - 65 in, Weight - 146.2 lbs, Temperature - 98.1 f, Pulse - 9 /min (low), Respiration - 17 /min, O2 Sat - 97 %, Pain - 7, Fatigue - 0 and BP - 133/ 89 mm(hg). Physical Exam: General: Alert and oriented x 3. No acute distress. HEENT: Normocephalic, atraumatic. Extraocular Movements Intact: Pupils Equal, Round, Reactive to Light and Accommodation: Sclerae anicteric. Oral cavity is clear without lesions, masses or ulcers. NECK: Supple without supraclavicular or jugular lymphadenopathy. LUNGS: Clear to auscultation bilaterally without rales, rhonchi or wheeze. HEART: Regular rate and rhythm, normal S1 and S2 without murmur, gallop or rub. MUSCULOSKELETAL: No tenderness or percussion pain over the axial skeleton, scapulae or pelvis. ABDOMEN: Soft, nontender, nondistended without masses or organomegaly. Bowell sounds are present. EXTREMITIES: No peripheral edema is identified. Limited motor and sensory examination are grossly intact and symmetric bilaterally. Limited printed circuit boards plasma etcher strength in the upper extremities. There is noted RA deformity in the hands bilaterally. NEUROLOGIC: Cranial nerves II ???XII are grossly intact. Normal sensation, strength 5/5 in all extremities, normal gait, no ataxia. Performance Status: Lab: None pending. Pathology: Primary, pituatary apopexy, Diagnosed 10/23/2024 (active) and Primary, m05.69 - rheumatoid arthritis of multiple sites with involvement of other organs and systems, Diagnosed 10/23/2024 (active) . Imaging: See HPI Impression: Multiple site RA with no clinical improvement with XRT. Pain 7-8 on a 10 point scale. PLAN: Follow-up with rheumatology. Will see the patient in the future if specifically requested. Signed by: 01/05/2025 11:57:35 AM <<Signature on File>> Time spent with patient:30 minutes. Global follow-up. CPT Code: CPT Code:
== END 2025-01-25 23:59 | disposition home or self-care (01) ==
PROVIDERS: PCP Family Medicine; Visit Provider Radiology Radiation Oncology
DX: M05.69 Rheumatoid arthritis of multiple sites with involvement of other organs and systems (principal)
CPT/HCPCS: 99024

== ENCOUNTER → 2025-02-24 09:32 | Outpatient (BNVA) | payer MEDICARE, SELFPAY | PROVIDERS: PCP Family Medicine; Visit Provider Internal Medicine Rheumatology | DX: M06.00 Rheumatoid arthritis without rheumatoid factor, unspecified site (principal); Z79.899 Other long term (current) drug therapy; Z71.85 Encounter for immunization safety counseling; E23.6 Other disorders of pituitary gland; M81.0 Age-related osteoporosis without current pathological fracture; Z87.828 Personal history of other (healed) physical injury and trauma | CPT/HCPCS: 99214 ==